=== PATIENT | female | born 1955 | race Hispanic/Latino ===

== ENCOUNTER 2020-03-09 07:09 | Emergency (ER) | payer OTHER ==
[~2020-03-09] VITALS: Ht 160 cm; Wt 72.6 kg
--- NOTE | 2020-03-09 07:32 | NUR ---
pt declined ice pack and pain meds.
--- OUTSIDE RECORDS SUMMARY | 2020-03-09 07:40 | XMS REPORT | Clinical Summary ---
Author Author LETITIA [facility] Address Unknown Phone Unavailable Care Team Providers Care Measurement Supervisor Name Role Phone Sharpless PCP Pcp, No PCP Unavailable Pcp, No PCP Unavailable Allergies Comments Active Allergy Reactions Severity Noted Date Adhesive Tape Rash Low 08/03/2010 IV Contrast Large welps over body with breathing difficulty Iodine Anaphylaxis, High 08/03/2010 Hives, Swelling Medications End Date Status Medication Sig Dispensed Refills Start Date Active pantoprazole (PROTONIX) Take 1 tablet 90 tablet 3 40 MG tablet (40 mg total) 7 by mouth daily. Additional Information Patient taking differently: 40 mg Oral As needed, Reported on 05/24/2019 9:58 AM Active LORazepam (ATIVAN) 2 MG Take 0.5 mg 0 tablet by mouth every 6 (six) hours as needed for Anxiety. Active dexAMETHasone (DECADRON) 06/06-06/07: 2 16 tablet 0 0 4 MG tablet tabs q12h 0 06/08-06/09: 1 tab q8h 06/10-06/11: 1 tab q12h. Active dexAMETHasone (DECADRON) 06/12-06/13: 1 6 tablet 0 2 MG tablet tab q12h 0 06/14-06/15: 1tab daily. 06/13/2019 acetaminophen-codeine Take 1 tablet 28 tablet 0 (TYLENOL #3) 300-30 mg by mouth 0 per tablet every 6 (six) hours as needed for up to 7 days. Max Daily Amount: 4 tablets 06/16/2019 docusate sodium (COLACE) Take 1 20 capsule 0 0 100 MG capsule capsule (100 0 mg total) by mouth 2 (two) times daily as needed for up to 10 days. Active Problems Problem Noted Date Cerebral edema 06/05/2019 Status post brain surgery in prior 48 hours 06/05/19 20 Post-operative pain 06/05/2019 Meningioma 06/04/2019 Chest pain 03/24/2017 Encounters Care Team Description Date Type Specialty Satya Bueno MD Brain tumor (HCC) (Primary Dx) 03/05/2020 Orders Only Radiation Oncology Satya Bueno MD Meningioma (HCC) 02/21/2020 Hospital Radiology Encounter Satya Bueno MD Meningioma (HCC) (Primary Dx) 02/11/2020 Orders Only Radiation Oncology Satya Bueno MD 02/11/2020 Orders Only Radiation Oncology Rich Foster MD Meningioma (HCC) 12/09/2019 Hospital Radiology Encounter Rich Foster MD Meningioma (HCC) (Primary Dx) 10/24/2019 Outside Orders Radiology Rich Foster MD CRANIOTOMY/ CRANIECTOMY,EXCISION TUMOR 06/04/2019 Surgery Delisa Simpson MD Glass, William Joseph, CRNA 06/04/2019 Anesthesia Event Rich Foster MD Meningioma (HCC) (Primary Dx); Cerebellar ataxia (HCC); Impaired mobility and ADLs; Diplopia 06/04/2019 Hospital General Internal Me dicine - Encounter 06/06/2019 06/04/2019 Travel Rich Foster MD 06/03/2019 Hospital Cardiology Encounter Meningioma (HCC) 06/03/2019 Hospital Pre-Admission Testi ng Encounter 06/03/2019 Orders Only General Internal Me dicine Rich Foster MD Meningioma (HCC) (Primary Dx) 05/31/2019 Orders Only Neurosurgery Rich Foster MD Meningioma (HCC) (Primary Dx) 05/31/2019 Orders Only Neurosurgery Rich Foster MD Meningioma (HCC) 05/27/2019 Hospital Radiology Encounter Rich Foster MD Meningioma (HCC) 05/24/2019 Hospital Pre-Admission Testi ng Encounter Rich Foster MD Meningioma (HCC) (Primary Dx) 05/22/2019 Outside Orders Radiology Rich Foster MD Meningioma (HCC) (Primary Dx) 05/22/2019 Orders Only Neurosurgery after 03/09/2019 Social History Date Tobacco Use Types Packs/Day Years Used Quit: 1989 Former Smoker Cigarettes Smokeless Tobacco: Never Used Drinks/Week oz/Week Comments Alcohol Use 3 Glasses of wine 3.0 Yes Sex Assigned at Date Recorded Not on file Last Filed Vital Signs Reading Time Taken Comments Vital Sign 134/62 06/06/2019 4:08 PM [facility] Blood Pressure 89 06/06/2019 4:08 PM [facility] Pulse 36.5 C (97.7 F) 06/06/2019 4:08 PM [facility] Temperature 22 06/06/2019 4:08 PM [facility] Respiratory Rate 98% 06/06/2019 4:08 PM [facility] Oxygen Saturation - - Inhaled Oxygen Concentration 64.3 kg (141 lb 12.1 oz) 06/04/2019 7:00 AM [facility] Weight 157.5 cm (5' 2.01") 06/04/2019 7:00 AM [facility] Height 25.92 06/04/2019 7:00 AM [facility] Body Mass Index Plan of Treatment Care Team Description Date Type Specialty Satya Bueno MD [address] [place], [place] [id number] 03/31/2020 Procedure visit Radiation Oncology Satya Bueno MD [address] [place] [address] 07/08/2020 Appointment Radiology Health Maintenance Due Date Last Done Comments BREAST CANCER SCREENING 1955 COLON CANCER SCREENING 1955 COLONOSCOPY CERVICAL CANCER SCREENING 12/23/1976 PAP ONLY (Age 21-65) INFLUENZA VACCINE (#1) 2019 02/22/2018, 02/27/2017 LIPID PANEL 03/24/2022 03/24/2017 Implants Device Identifier Shelf Expiration Date Model / Serial / L ot Implanted Type Area Manufactur er 06/12/2020 [id number] / / [id number] Cement Inject 5cc Hydroset [id number] IMPLANTS Head [place]:ST - [id number] Implanted: Qty: 1 on 06/04/2019 by Rich Miller MD at [facility] [id number] / / Plt Str Un3 2h [id number] - [id number] IMPLANTS Head [place]:CR Implanted: Qty: 1 on 06/04/2019 [id number] / / Cvr Bur Hole Lp 14mm W/Tab [id number] IMPLANTS Head [place]:CR - [id number] ANIOMAXILL Implanted: Qty: 2 on 06/04/2019 by Rich Choudhary MD at [facility] [id number] / / Scr Un3 Helix Self Drl 1.5x4mm IMPLANTS Head [place]:CR [id number] - [id number] ANIOMAXILL Implanted: Qty: 10 on 06/04/2019 by Rich Choudhary MD at [facility] Procedures Comments Procedure Name Priority Date/Time Associated Diag nosis MR BRAIN WITH & WITHOUT Routine 02/21/2020 Mening ioma (HCC) IV CONTRAST 4:15 PM CDT MR BRAIN WITH & WITHOUT Routine 12/09/2019 Mening ioma (HCC) IV CONTRAST 8:55 AM CDT RHYTHM STRIP - SCAN 06/10/2019 3:00 PM [facility] INTRAOPERATIVE PATH 06/10/2019 REPORT - SCAN 3:00 PM [facility] POCT-GLUCOSE METER Routine 06/06/2019 5:03 PM [facility] POCT-GLUCOSE METER Routine 06/06/2019 12:22 PM [facility] XR ESOPH SWALLOW FUNCTION STAT 06/06/2019 W/CINE VIDEO 10:36 AM [facility] POCT-GLUCOSE METER Routine 06/06/2019 8:45 AM [facility] CBC (HEMOGRAM ONLY) Routine 06/06/2019 4:28 AM [facility] PHOSPHORUS Routine 06/06/2019 4:28 AM [facility] MAGNESIUM Routine 06/06/2019 4:28 AM [facility] BASIC METABOLIC PANEL (7) Routine 06/06/2019 4:28 AM [facility] POCT-GLUCOSE METER Routine 06/05/2019 9:46 PM [facility] POCT-GLUCOSE METER Routine 06/05/2019 6:08 PM [facility] TRANSFUSION SERVICE 06/05/2019 REPORT - SCAN 6:03 PM [facility] MR BRAIN WITH & WITHOUT Routine 06/05/2019 IV CONTRAST 4:41 PM [facility] POCT-GLUCOSE METER Routine 06/05/2019 11:49 AM [facility] CBC (HEMOGRAM ONLY) Routine 06/05/2019 5:45 AM [facility] PHOSPHORUS Routine 06/05/2019 5:45 AM [facility] MAGNESIUM Routine 06/05/2019 5:45 AM [facility] BASIC METABOLIC PANEL (7) Routine 06/05/2019 5:45 AM [facility] SHORT LATENCY SEP ALL Routine 06/04/2019 LIMBS 2:17 PM [facility] TISSUE EXAM AP Routine 06/04/2019 11:42 AM [facility] PROCEDURE W/ 06/04/2019 Meningioma (HCC) INTRAOPERATIVE 8:12 AM [facility] NEUROMONITORING Case Notes 6 HRS Special Needs (STEALTH NAVIGATION , MICROSCOPE , NEUROMONIT ORING: SSEP, MEP) ULTRASOUND 06/04/2019 Meningioma (HCC) GUIDANCE,INTRAOPERATIVE 8:12 AM [facility] Case Notes 6 HRS Special Needs (STEALTH NAVIGATION , MICROSCOPE , NEUROMONIT ORING: SSEP, MEP) PROCEDURE W/ OPERATING 06/04/2019 Meningioma (HC C) MICROSCOPE 8:12 AM [facility] Case Notes 6 HRS Special Needs (STEALTH NAVIGATION , MICROSCOPE , NEUROMONIT ORING: SSEP, MEP) CRANIOTOMY,STEALTH 06/04/2019 Meningioma (HCC) 8:12 AM [facility] Case Notes 6 HRS Special Needs (STEALTH NAVIGATION , MICROSCOPE , NEUROMONIT ORING: SSEP, MEP) CRANIOTOMY/ 06/04/2019 Meningioma (HCC) CRANIECTOMY,EXCISION 8:12 AM [facility] TUMOR Case Notes 6 HRS Special Needs (STEALTH NAVIGATION , MICROSCOPE , NEUROMONIT ORING: SSEP, MEP) ABORH, MANUAL STAT 06/04/2019 7:18 AM [facility] CBC W/PLT COUNT & AUTO Routine 06/03/2019 Meningi rayray (HCC) DIFFERENTIAL 8:32 AM [facility] URINALYSIS W/ MICROSCOPIC Routine 06/03/2019 Meni ngioma (HCC) 8:32 AM [facility] BASIC METABOLIC PANEL (7) Routine 06/03/2019 Meni ngioma (HCC) 8:32 AM [facility] CBC W/PLT COUNT & AUTO Routine 06/03/2019 Meningi rayray (HCC) DIFFERENTIAL 8:32 AM [facility] PT/APTT Routine 06/03/2019 Meningioma (HCC ) 8:32 AM [facility] ECG 12-LEAD Routine 06/03/2019 8:14 AM [facility] Procedure Note - Interface, External Ris In - 06/03/2019 5:55 PM [facility] Ventricula r Rate 72 BPM Atrial Rate 72 BPM P-R Interval 138 ms QRS Duration 86 ms Q-T Interval 412 ms QTC Calculatio n(Bazett) 451 ms P Helix 31 degrees R Helix -29 degrees T Helix 22 degrees Normal sinus rhythm Normal ECG When compared with ECG of 7 21:09, No significan t change was found ECG 12-LEAD Routine 06/03/2019 Meningioma (HCC ) 8:14 AM [facility] MR BRAIN WITH & WITHOUT Routine 05/27/2019 Mening ioma (HCC) IV CONTRAST 10:08 AM [facility] POCT-CREATININE Routine 05/27/2019 9:09 AM [facility] TRANSFUSION SERVICE 05/25/2019 REPORT - SCAN 7:24 PM [facility] TYPE AND SCREEN, Routine 05/24/2019 Meningioma (H CC) AUTOMATED 10:31 AM [facility] after 03/09/2019 Results * MR brain without & with IV contrast (02/21/2020 4:15 PM CDT) Only the most recent of 4 results within the time period is included. Specimen Narrative Performed At FINAL REPORT [facility] MR, BRAIN, WITH \\T\\ WITHOUT CONTRAST INDICATION: Brain tumor, primary Radiation planning brain MRI TECHNIQUE: Multiplanar, multisequence M R imaging of the brain prior to and following intravenous administra tion of contrast. COMPARISON: MRI 12/09/2019, 06/05/2019, an d 05/27/2019 FINDINGS: Intracranial: Again noted are postopera tive changes of right retrosigmoid craniotomy for debulking o f right petroclival meningioma. The residual enhancing mass along the right petrous ridge has again slightly increased in size, c urrently 1.6 cm AP by 1.4 cm TV by 2.4 cm CC, compared to 1.6 cm AP by 1.1 cm TV by 2.4 cm CC on the prior exam when measured in similar fashion. Unchanged thin tail extending along the right tentorial fallon flet and into the internal auditory canal. Mass effect upon the mi dbrain, kaitlyn, and brachium pontis, and associated FLAIR hyperinten sity are unchanged. No acute intracranial hemorrhage. Simil ar restricted effusion due to tumor hypercellularity. No restricted d iffusion elsewhere to suggest acute infarct. No hydrocephalus. Visual ized intracranial flow voids are of normal course and caliber. Sinuses: No evidence of sinusitis. Mast oids are clear. Orbits: Globes are intact. Calvarium \\T\\ scalp: Right retrosigmoid craniotomy is unchanged. IMPRESSION: Since 12/09/2019, there has been again s light further increase in size of residual right petroclival meningiom a. Signed: Jailyn Syed MD Report Verified Date/Time: 02/22/2020 01:33:41 Procedure Note Interface, External Ris In - 02/22/2020 1:35 AM CDT FINAL REPORT MR, BRAIN, WITH \\T\\ WITHOUT CONTRAST INDICATION: Brain tumor, primary Radiation planning brain MRI TECHNIQUE: Multiplanar, multisequence MR imaging of the brain prior to and following intravenous administration of contrast. COMPARISON: MRI 12/09/2019, 06/05/2019, and 05/27/2019 FINDINGS: Intracranial: Again noted are postoperative changes of right retrosigmoid craniotomy for debulking of right petroclival meningioma. The residual enhancing mass along the right petrous ridge has again slightly increased in size, currently 1.6 cm AP by 1.4 cm TV by 2.4 cm CC, compared to 1.6 cm AP by 1.1 cm TV by 2.4 cm CC on the prior exam when measured in similar fashion. Unchanged thin tail extending along the right tentorial leaflet and into the internal auditory canal. Mass effect upon the midbrain, kaitlyn, and brachium pontis, and associated FLAIR hyperintensity are unchanged. No acute intracranial hemorrhage. Similar restricted effusion due to tumor hypercellularity. No restricted diffusion elsewhere to suggest acute infarct. No hydrocephalus. Visualized intracranial flow voids are of normal course and caliber. Sinuses: No evidence of sinusitis. Mastoids are clear. Orbits: Globes are intact. Calvarium \\T\\ scalp: Right retrosigmoid craniotomy is unchanged. IMPRESSION: Since 12/09/2019, there has been again slight further increase in size of residual right petroclival meningioma. Signed: Jailyn Syed MD Report Verified Date/Time: 02/22/2020 01:33:41 Performing Organization Address City/State/Zipcode Ph one Number [facility] * RHYTHM STRIP - SCAN (06/10/2019 3:00 PM [facility]) Narrative Performed At This result has an attachment that is n ot available. * INTRAOPERATIVE PATH REPORT - SCAN (06/10/2019 3:00 PM [facility]) Narrative Performed At This result has an attachment that is n ot available. * POC-Glucose meter (06/06/2019 5:03 PM [facility]) Only the most recent of 6 results within the time period is included. POC-Glucose 208 (H)Comment: : TESTED AT 70 - 110 mg/dL [facility] [id number] [facility] [id number]: Apartment Maintenance/Chainstitch Sewing Machine Operator ID MEDICAL CENTER = [id number] for JUMA EMMANUEL Specimen Blood Performing Organization Address City/[facility]/Zipcode Ph one Number [facility] [address] [place], [place] [address] [facility] * FL esoph swallow funct with cine video (06/06/2019 10:36 AM [facility]) Specimen Narrative Performed At FINAL REPORT GE [facility] Modified barium swallow exam with speec h pathology service CLINICAL HISTORY: swallow disfunction p er speech evaluation; discharge pending IMPRESSION: Please see the speech pathology service report for details. Barium contrast of multiple consistenci es is given to the patient to swallow. Fluoroscopic observation is pe rformed during swallowing. No aspiration or penetration. Fluoro time: 1.2 Number of images: 14 Signed: Julito Courtney MD Report Verified Date/Time: 06/06/2019 13:38:36 Reading [facility] [address] [facility] Procedure Note Interface, External Ris In - 06/06/2019 1:40 PM [facility] FINAL REPORT Modified barium swallow exam with speech pathology service CLINICAL HISTORY: swallow disfunction per speech evaluation; discharge pending IMPRESSION: Please see the speech pathology service report for details. Barium contrast of multiple consistencies is given to the patient to swallow. Fluoroscopic observation is performed during swallowing. No aspiration or penetration. Fluoro time: 1.2 Number of images: 14 Signed: Julito Courtney MD Report Verified Date/Time: 06/06/2019 13:38:36 Reading [facility]: [address] [facility] Performing Organization Address City/State/Zipcode Ph one Number GE RIS * CBC (Hemogram only) (06/06/2019 4:28 AM [facility]) Only the most recent of 2 results within the time period is included. WBC 17.4 (H) 3.5 - 10.5 K/L [facility] RBC 4.18 3.93 - 5.22 M/L [facility] Hemoglobin 12.5 11.2 - 15.7 GM/DL [facility] Hematocrit 37.4 34.1 - 44.9 % [facility] MCV 89.5 79.4 - 94.8 fL [facility] MCH 29.9 25.6 - 32.2 pg [facility] MCHC 33.4 32.2 - 35.5 GM/DL [facility] RDW 14.2 11.7 - 14.4 % [facility] Platelets 371 150 - 450 K/CU MM [facility] MPV 10.0 9.4 - 12.3 fL [facility] nRBC 0 0 - 0 /100 WBC [facility] Specimen Blood Performing Organization Address [facility] one Number [place] [address] [address] [phone] [place] [address] * Phosphorus (06/06/2019 4:28 AM [facility]) Only the most recent of 2 results within the time period is included. Phosphorus 3.0 2.3 - 4.7 mg/dL [facility] Specimen Blood Narrative Performed At Apartment Maintenance ID - [facility] Performing Organization Address [facility] one Number [place] [address] 0 [phone] [place] [address] * Magnesium (06/06/2019 4:28 AM [facility]) Only the most recent of 2 results within the time period is included. Magnesium 2.2 1.6 - 2.6 mg/dL [facility] Specimen Blood Narrative Performed At Apartment Maintenance ID [facility] Performing Organization Address [facility] Ph one Number [address] [facility] * Basic Metabolic Panel (06/06/2019 4:28 AM [facility]) Only the most recent of 3 results within the time period is included. Sodium 142 136 - 145 meq/L [facility] Potassium 4.0 3.5 - 5.1 meq/L [facility] Chloride 109 (H) 98 - 107 meq/L [facility] CO2 25 22 - 29 meq/L [facility] BUN 14 7 - 21 mg/dL [facility] Creatinine 0.70 0.57 - 1.25 mg/dL [facility] Glucose 131 (H) 70 - 105 mg/dL [facility] Calcium 9.2 8.4 - 10.2 mg/dL [facility] EGFR 85Comment: ESTIMATED GFR IS mL/min/1.73 sq m [facility] NOT ACCURATE CREATININE [facility] CLEARANCE IN PREDICTING [facility] GLOMERULAR FILTRATION RATE. ESTIMATED GFR IS NOT APPLICABLE FOR DIALYSIS PATIENTS. Specimen Blood Narrative Performed At Apartment Maintenance ID - LEANN W [facility] Performing Organization Address City/State/Zipcode Ph one Number [place] [address] [facility] * TRANSFUSION SERVICE REPORT - SCAN (06/05/2019 6:03 PM [facility]) Only the most recent of 2 results within the time period is included. Narrative Performed At This result has an attachment that is n ot available. * SHORT LATENCY SEP ALL LIMBS (06/04/2019 2:17 PM [facility]) Specimen Narrative Performed At INTRAOPERATIVE MONITORING REPORT [facility] Patient Name: Gloria Velasquez [facility] [place] Surgery Date: 06/04/2019 [place] Pro S/N: [id number] Monitoring began at 09:22 and ended at 14:17 Surgeon: Rich Foster MD Examining Neurologist: Laura Buckley MD (9:22-13:00) and Alicia Andrew MD (13:00-14:17) Monitoring Technologist: RACHEL Galaviz Procedure: Right Retrosigmoid Craniotom y Stimulation Parameters: Median nerves individually stimulated at the wrist Rate 4.7Hz, Intensity 30 mA, Durat ion 0.3ms Posterior Tibial nerves individual ly stimulated at the ankle Rate 4.7Hz, Intensity 50 mA, Durat ion 0.3ms Filters 30-500Hz, Notch Off Motor strip stimulated anterior to C3 a nd C4 with alternating polarities Intensity 100-500V, Train Number 9 , THEE 2-3ms Filters 30-2KHz, Notch Off Auditory (CN XIII) nerves individu ally stimulated at the ears Right ear ipsilateral, left ear co ntralateral, Rate 21.1Hz, Intensity 100dB nHL Masking 60dB n HL, Polarity Alternating, Filters 150-1.5KHz, Notch Off Recording Parameters: CV, CP3, CP4, C Pz, and FPz, Transcranial electrical Motor Evoked Po tentials recorded from Abductor Pollicis Brevis referenced to the Abductor Digiti Quinti Minimi muscle groups, Tibialis Anterior and the Adductor Hallucis muscle groups. Free-running EMG of the Right CN V and VII. Recording Parameters: A1 and A2 refer enced to CPz Description: Intraoperative neurophys iological monitoring was performed using a combination of upper and lower extremity somatosensory evoked potentials (SSEP) and transcranial electrical motor evoked potentials (TceMEP), free- running CN EMG on the right side, and Bilateral ABRs. A connectio n with an examining neurologist was established and maintained througho ut the operative procedure by the monitoring technologist. Upper and lower extremity somatosensory evoked potentials were recorded at the subcortical and cortica l levels following median nerve stimulation at the wrist and post erior tibial nerve stimulation at the ankle. All SSEPs were present and reproducible at baselines, and consistent with baselines throughou t the case and at closing. At closing, somatosensory evoked potential s were judged to be essentially unchanged from those of pos t-positioning baselines. TceMEPs were recorded peripherally from the upper and lower extremities following alternating polar ity motor strip stimulation. Upper and lower TcMEPs were clear and r eproducible from the beginning of the surgical procedure. At closing , TceMEP responses were judged to stay unchanged from post anesthetic protocol post craniectomy. Free running responses were recorded fr om the right CN VII via Orbicularis oculi and Orbicularis jose muscles throughout the procedure. Intermittent firing of the l eft facial nerve as reflected in the Orbicularis jose was observed. All cranial nerve EMG recordings were quiet upon closing. Brain Stem Auditory Evoked Potentials w ere recorded following individual stimulation of each ear. The resulting baseline responses to auditory nerve stimulation showed go od morphology and inter peak latency and good amplitudes in waves 1, 3 and 5 on the left side. Waves 1, 3 and 5 were present on the ri ght side also but not as well-formed. ABR responses at closing w ere essentially unchanged relative to baseline recordings bilater ally. Conclusion: The SEP study suggests the absence of u ntoward, secondary effects on the somatosensory pathway as a conseque nce of this surgical procedure. The MEP study suggests the absence of u ntoward, secondary effects on the motor pathways innervating these mo nitored muscles. The EMG results suggest that there were periods of probable neurotonic activity involving the facia l muscles, suggesting transient irritation of the right CN7 i ntraoperatively. The ABR results suggest the absence of untoward, secondary effects on the bilateral brainstem auditory pathwa ys. Laura Buckley M.D. and [employer] Procedure Note Interface, External Ris In - 08/20/2019 10:43 AM CDT INTRAOPERATIVE MONITORING REPORT Patient Name: Gloria Velasquez [facility], [facility] Surgery Date: 06/04/2019 [employer] Pro S/N: [id number] Monitoring began at 09:22 and ended at 14:17 Surgeon: Rich Foster MD Examining Neurologist: Laura Buckley MD (9:22-13:00) and Alicia Andrew MD (13:00-14:17) Monitoring Technologist: RACHEL Galaviz Procedure: Right Retrosigmoid Craniotomy Stimulation Parameters: Median nerves individually stimulated at the wrist Rate 4.7Hz, Intensity 30 mA, Duration 0.3ms Posterior Tibial nerves individually stimulated at the ankle Rate 4.7Hz, Intensity 50 mA, Duration 0.3ms Filters 30-500Hz, Notch Off Motor strip stimulated anterior to C3 and C4 with alternating polarities Intensity 100-500V, Train Number 9, THEE 2-3ms Filters 30-2KHz, Notch Off Auditory (CN XIII) nerves individually stimulated at the ears Right ear ipsilateral, left ear contralateral, Rate 21.1Hz, Intensity 100dB nHL Masking 60dB nHL, Polarity Alternating, Filters 150-1.5KHz, Notch Off Recording Parameters: CV, CP3, CP4, CPz, and FPz, Transcranial electrical Motor Evoked Potentials recorded from Abductor Pollicis Brevis referenced to the Abductor Digiti Quinti Minimi muscle groups, Tibialis Anterior and the Adductor Hallucis muscle groups. Free-running EMG of the Right CN V and VII. Recording Parameters: A1 and A2 referenced to CPz Description: Intraoperative neurophysiological monitoring was performed using a combination of upper and lower extremity somatosensory evoked potentials (SSEP) and transcranial electrical motor evoked potentials (TceMEP), free-running CN EMG on the right side, and Bilateral ABRs. A connection with an examining neurologist was established and maintained throughout the operative procedure by the monitoring technologist. Upper and lower extremity somatosensory evoked potentials were recorded at the subcortical and cortical levels following median nerve stimulation at the wrist and posterior tibial nerve stimulation at the ankle. All SSEPs were present and reproducible at baselines, and consistent with baselines throughout the case and at closing. At closing, somatosensory evoked potentials were judged to be essentially unchanged from those of post-positioning baselines. TceMEPs were recorded peripherally from the upper and lower extremities following alternating polarity motor strip stimulation. Upper and lower TcMEPs were clear and reproducible from the beginning of the surgical procedure. At closing, TceMEP responses were judged to stay unchanged from post anesthetic protocol post craniectomy. Free running responses were recorded from the right CN VII via Orbicularis oculi and Orbicularis jose muscles throughout the procedure. Intermittent firing of the left facial nerve as reflected in the Orbicularis jose was observed. All cranial nerve EMG recordings were quiet upon closing. Brain Stem Auditory Evoked Potentials were recorded following individual stimulation of each ear. The resulting baseline responses to auditory nerve stimulation showed good morphology and inter peak latency and good amplitudes in waves 1, 3 and 5 on the left side. Waves 1, 3 and 5 were present on the right side also but not as well-formed. ABR responses at closing were essentially unchanged relative to baseline recordings bilaterally. Conclusion: The SEP study suggests the absence of untoward, secondary effects on the somatosensory pathway as a consequence of this surgical procedure. The MEP study suggests the absence of untoward, secondary effects on the motor pathways innervating these monitored muscles. The EMG results suggest that there were periods of probable neurotonic activity involving the facial muscles, suggesting transient irritation of the right CN7 intraoperatively. The ABR results suggest the absence of untoward, secondary effects on the bilateral brainstem auditory pathways. Laura Buckley M.D. and Alicia Andrew M.D. Performing Organization Address City/State/Zipcode Ph one Number GE RIS * Tissue Exam (06/04/2019 11:42 AM [facility]) Case Report Surgical Pathology Report [facility] Case: [id number] [facility] Authorizing Provider: Rich Foster MD Collected: 06/04/2019 1142 Ordering Location: [facility] PERIOPERATIVE Received: 06/04/2019 1149 SERVICES Pathologist: Pramod Vicente MD Specimens: A) - Mass, CP ANGLE MASS B) - Mass, CP ANGLE MASS DIAGNOSIS A. 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 Immunoperoxidase [facility] stains for Ki67 confirm a labelling index of 8.9% focally, but overall less than 3%. CPT Code(s) 53227 x 2; 82548; 05468 [facility] CLINICAL Cerebellopontine angle mass [facility] SPECIMEN SOURCE CP angle mass [facility] GROSS A. Received fresh labeled "CP [facility] DESCRIPTION angle mass" is fragmented [facility] castro-pink soft tissue measuring [facility] in aggregate 0.5 x 0.3 x 0.2 cm. Touch preparations and frozen sections are performed. The specimen is entirely submitted in cassette FSA1. CYB/pl B. Received in formalin labeled "CP angle mass" are multiple pieces of castro-brown irregular soft tissue measuring in aggregate 1.2 x 0.5 x 0.5 cm. The specimen is submitted entirely in cassette B1. CYB/ew INTRAOPERATIVE CP ANGLE MASS, BIOPSY: [facility] CONSULTATION - MENINGIOMA [facility] The results are verbally MEDICAL CENTER reported by Dr. Vicente to OR-11 at 12:02 p.m. MICROSCOPIC Performed on A and B [facility] DESCRIPTION [facility] SPECIAL STUDIES The interpretation of this [facility] ST ANTHONY Muir'S case included the use of [facility] immunohistochemistry or [facility] special stains. Control Slides Examined: In-house known positive controls were evaluated along with the test tissue. These control slides run alongside of the patients sample show appropriate staining. Internal positive and negative controls when available are evaluated Immunohistochemistry technical testing was performed at [facility], Pathology Laboratory where it was developed and its performance characteristics were determined. It has not been cleared or approved by the U.S. Food and Drug Administration. The FDA has determined that such clearance or approval is not necessary. The test is used for clinical purposes. It should not be regarded as investigational or for research. This laboratory is certified under the Clinical Laboratory Improvement Amendments of 1988 (CLIA-88) as qualified to perform high complexity clinical laboratory testing. Specimen Tissue - Mass (morphologic abnormality) Tissue specimen (specimen) - Mass (morphologic abnormality) Performing Organization Address [facility] Ph one [address] [address] [facility] * ABORH, manual (06/04/2019 7:18 AM [facility]) ABO Grouping O [facility] Rh Factor POS [facility] Specimen Blood Performing Organization Address [facility] Ph one [address] [address] [facility] * PT/aPTT (06/03/2019 8:32 AM [facility]) Protime 12.5 11.9 - 14.2 seconds [facility] INR 1.0 <=5.9 [facility] PTT 32.6 22.5 - 36.0 seconds [facility] Specimen Blood - Entire left upper arm (body structure) Narrative Performed At Effective 09/26/2018: PT Reference Range Change [facility] New: 11.9-14.2 Previous: 11.7-14.7 [facility] MEDICAL PAULETTE TER RECOMMENDED COUMADIN/WARFARIN INR THERA PY RANGES STANDARD DOSE: 2.0-3.0 Includes: PROP HYLAXIS for venous thrombosis, systemic embolization; TREATMENT for venous thro mbosis and/or pulmonary embolus. HIGH RISK: Target INR is 2.5-3.5 for pa tients wiht mechanical heart valves. Performing Organization Address City/State/Zipcode Ph one Number [address] [address] MEDICAL CENTER * CBC with platelet count + automated diff (06/03/2019 8:32 AM [facility]) WBC 5.4 3.5 - 10.5 K/L [facility] RBC 4.90 3.93 - 5.22 M/L [facility] Hemoglobin 14.6 11.2 - 15.7 GM/DL [facility] Hematocrit 44.1 34.1 - 44.9 % [facility] MCV 90.0 79.4 - 94.8 fL [facility] MCH 29.8 25.6 - 32.2 pg [facility] MCHC 33.1 32.2 - 35.5 GM/DL [facility] RDW 13.7 11.7 - 14.4 % [facility] Platelets 387 150 - 450 K/CU MM [facility] MPV 9.5 9.4 - 12.3 fL [facility] nRBC 0 0 - 0 /100 WBC [facility] % Neutros 51 % [facility] % Lymphs 38 % [facility] % Monos 9 % [facility] % Eos 2 % [facility] % Baso 1 % [facility] # Neutros 2.74 1.56 - 6.13 K/L [facility] # Lymphs 2.03 1.18 - 3.74 K/L [facility] # Monos 0.49 (H) 0.24 - 0.36 K/L [facility] # Eos 0.08 0.04 - 0.36 K/L [facility] # Baso 0.06 0.01 - 0.08 K/L [facility] Immature 0 0 - 1 % [facility] Granulocytes-Re [facility] Specimen Blood - Entire left upper arm (body structure) Performing Organization Address City/State/Zipcode Ph one Number [place] [address] MEDICAL CENTER * Urinalysis w/Microscopic (06/03/2019 8:32 AM [facility]) Color, UA Colorless [facility] Clarity, UA Clear [facility] Specific 1.003 1.001 - 1.035 [facility] pH, UA 7.5 5.0 - 8.0 [facility] Protein, UA Negative Negative [facility] Glucose, UA Negative Negative [facility] Ketones, UA Negative Negative [facility] Bilirubin, UA Negative Negative [facility] Blood, UA Negative Negative [facility] Nitrite, UA Negative Negative [facility] Leukocytes, UA Negative Negative [facility] Urobilinogen, 0.2 0.2 - 1.0 mg/dL [facility] RBC, UA 0 /HPF [facility] WBC, UA 0 /HPF [facility] Squam Epithel, <1 /HPF [facility] Specimen Source Urine, Clean Catch [facility] Specimen Urine - Urine specimen collection, clean catch (procedure) Narrative Performed At Apartment Maintenance ID - [auto] [facility] Apartment Maintenance ID - tech [facility] Performing Organization Address City/[facility] Ph one Number [facility] [address] [place], [place] [address] MEDICAL CENTER * ECG 12 lead (06/03/2019 8:14 AM [facility]) Specimen Narrative Performed At Ventricular Rate 72 BPM GE MUSE Atrial Rate 72 BPM P-R Interval 138 ms QRS Duration 86 ms Q-T Interval 412 ms QTC Calculation(Bazett) 451 ms P Helix 31 degrees R Helix -29 degrees T Helix 22 degrees Normal sinus rhythm Normal ECG When compared with ECG of 24-MAR-2017 2 1:09, No significant change was found Confirmed by Dale BEST MICHAEL ([id number]) on 06/04/2019 8:03:27 AM Procedure Note Interface, External Ris In - 06/04/2019 8:03 AM [facility] Ventricular Rate 72 BPM Atrial Rate 72 BPM P-R Interval 138 ms QRS Duration 86 ms Q-T Interval 412 ms QTC Calculation(Bazett) 451 ms P Helix 31 degrees R Helix -29 degrees T Helix 22 degrees Normal sinus rhythm Normal ECG When compared with ECG of 24-MAR-2017 21:09, No significant change was found Confirmed by Dale BEST MICHAEL ([id number]) on 06/04/2019 8:03:27 AM Performing Organization Address City/State/[facility] Cent[facility] Ph one Number GE MUSE * POC-Creatinine (05/27/2019 9:09 AM [facility]) POC-Creatinine 0.7Comment: TESTED AT [facility]-KG 0.6 - 1.3 mg/dL [facility] [address] [facility] [address] MEDICAL CENTER POC-EGFR 85 mL/min/1.73M2 [facility] [place] Specimen Blood Performing Organization Address [facility] Cent[facility] Ph one Number [facility] [address] [place], [place] [address] [facility] * Type and screen, automated (05/24/2019 10:31 AM [facility]) ABO/RH O POSITIVE [facility] ([facility]) [facility] Ab Scrn NEGATIVE [facility] Specimen Blood - Entire right upper arm (body structure) Performing Organization Address [facility] Centercode Ph one Number [facility] [address] [place] [address] [facility] after 03/09/2019 Insurance Type Payer Benefit Subscriber ID Effective Phone Address Plan / Dates Group HMO/POS [facility] [employer] [facility] [id number] 2019-P [facility] resent CHOICE EXCHANGE (Home) [place] [address] Advance Directives For more information, please contact: [phone] Date Inactivated Comments Code Status Date Activated 06/06/2019 8:19 PM Full Code 06/04/2019 4:33 PM This code status was determined by: Patient 06/04/2019 4:33 PM Full Code 06/04/2019 6:59 AM This code status was determined by: Patient 03/26/2017 12:36 PM Full Code 03/24/2017 8:32 PM This code status was determined by: Patient
--- OUTSIDE RECORDS SUMMARY | 2020-03-09 07:40 | XMS REPORT | Continuity of Care Document ---
Author Author [facility] t Organization [facility] Address [address] [place] [address] [address] [place] [address] Phone Unavailable Care Team Providers Care Financial Management Name Role Phone Sharpless PCP Myles VILLATORO, Sai Hernadez Attphys [phone] Alphonse VILLATORO, Fredi Attphys 3, Ods Attphys Unavailable Field-Hrt, Visual Attphys Unavailable Cristian VILLATORO, Yasmine Villanueva Attphys Pravin Foster MD Attphys Yasmine FOSTER Attphys Unavailable Tatiana VILLATORO, Jules Hercules Attphys [phone] Lonnie Gomez CRNA Attphys [phone] CONNOR, UMAR Attphys Unavailable Yasmine FOSTER Admphys Unavailable CONNOR, UMAR Admphys Unavailable Payers Payer Name Policy Type Policy Number Effective Date Expiration Date S [facility] OICE [id number]/POS xxxx [id number] 2019 00:00:00 [facility] Cente r Problems Condition Name Condition Details Condition Category Status Onset Date Resolution Date Last Treatment Date Treating Clinician Comments Source Cerebral edema Cerebral edema Disease Active 2019-06-05 00:00:00 [facility] Status post brain surgery in prior 48 hours Status pos t brain surgery in prior 48 hours Disease Active 2019-06-05 00:00:00 [facility] Post-operative pain Post-operative pain Disease Active 2019-06-05 00:00 :00 [facility] Meningioma Meningioma Disease Active 2019-06-04 00:00:00 [facility] Chest pain Chest pain Disease Active 2017-03-24 00:00:00 [facility] Allergies, Adverse Reactions, Alerts Allergy Name Allergy Type Status Severity Reaction(s) Onset Date Inacti ve Date Treating Clinician Comments Source Adhesive Tape Propensity to adverse reactions Active Rash 2010-08-03 00:00:00 [facility] Iodine Propensity to adverse reactions Active Anap hylaxis, Hives, Swelling 2010-08-03 00:00:00 IV ContrastLarge wel ps over body with breathing difficulty [facility] Social History Social Habit Start Date Stop Date Quantity Comments Source History of tobacco use Current smoker [facility] Sex Assigned At [facility] Tobacco use and exposure 2019-06-06 00:00:00 2019-06-06 00:00:00 Neve r used [facility] Alcohol intake 2019-06-06 00:00:00 2019-06-06 00:00:00 Current drinker of alcohol (finding) [facility] Sabina r Smoking Status Start Date Stop Date Source Former smoker 2019-06-06 00:00:00 2019-06-06 00:00:00 [facility] Medications Ordered Medication Name Filled Medication Name Start Date Stop Da te Current Medication? Ordering Clinician Indication Dosage Frequency Signature (SIG) Comments Components Source LORazepam (ATIVAN) 2 MG tablet 2019-06-06 18:19:39 Yes .5mg Take 0.5 mg by mouth every 6 (six) hours as needed for Anxiety. [facility] dexAMETHasone (DECADRON) 4 MG tablet 2019-06-06 00:00:00 Ye s 2/6- 2/7: 2 tabs q12h2/8-2/9: 1 tab q8h2/10-2/11: 1 tab q12h. [facility] dexAMETHasone (DECADRON) 2 MG tablet 2019-06-06 00:00:00 Ye s /12- 13: 1 tab q12h2/14-15: 1tab daily. [facility] docusate sodium (COLACE) 100 MG capsule 00:00:00 2019-06-16 23:59:00 No 100mg Take 1 capsule (100 mg total) by mouth 2 (two) times daily as needed for up to 10 days. [facility] acetaminophen-codeine (TYLENOL #3) 300-30 mg per tablet 2019-06-06 00:00:00 2019-06-13 23:59:00 No 1{tbl} Take 1 tablet by mouth every 6 (six) hours as needed for up to 7 days. Max Daily Amount: 4 tablets [facility] pantoprazole (PROTONIX) 40 MG tablet 2017-03-27 00:00:00 Ye s 40mg QD Take 1 tablet (40 mg total) by mouth daily. [facility] Vital Signs Vital Name Observation Time Observation Value Comments Source Systolic blood pressure 2019-06-06 16:08:00 134 mm[Hg] [facility] Diastolic blood pressure 2019-06-06 16:08:00 62 mm[Hg] [facility] Heart rate 2019-06-06 16:08:00 89 /min [facility] Body temperature 2019-06-06 16:08:00 36.5 Astrid [facility] Respiratory rate 2019-06-06 16:08:00 22 /min [facility] Oxygen saturation in Arterial blood by Pulse oximetry 06-06 16:08:00 98 /min [facility] Body height 2019-06-04 07:00:00 157.5 cm [facility] Body weight 2019-06-04 07:00:00 64.3 kg [facility] BMI 2019-06-04 07:00:00 25.92 kg/m2 [facility] Procedures Procedure Date / Time Performed Performing Clinician [facility] e MR BRAIN WITH & WITHOUT IV CONTRAST 2020-02-21 16:15:00 Satya Robertson [facility] MR BRAIN WITH & WITHOUT IV CONTRAST 2019-12-09 08:55:00 Ken Foster [facility] RHYTHM STRIP - SCAN 2019-06-10 15:00:07 Provider, Default Scanni saul [facility] INTRAOPERATIVE PATH REPORT - SCAN 2019-06-10 15:00:05 Provid er, Default Scanning [facility] POCT-GLUCOSE METER 2019-06-06 17:03:00 Rich Foster [facility] POCT-GLUCOSE METER 2019-06-06 12:22:00 Rich Foster [facility] XR ESOPH SWALLOW FUNCTION W/CINE VIDEO 2019-06-06 10:36:00 Robin Durham [facility] POCT-GLUCOSE METER 2019-06-06 08:45:00 Rich Foster [facility] BASIC METABOLIC PANEL (7) 2019-06-06 04:28:00 Robin Durham [facility] MAGNESIUM 2019-06-06 04:28:00 Robin Durham [facility] PHOSPHORUS 2019-06-06 04:28:00 Robin Durham [facility] CBC (HEMOGRAM ONLY) 2019-06-06 04:28:00 Robin Durham [facility] POCT-GLUCOSE METER 2019-06-05 21:46:00 Rich Foster [facility] POCT-GLUCOSE METER 2019-06-05 18:08:00 Rich Foster [facility] TRANSFUSION SERVICE REPORT - SCAN 2019-06-05 18:03:26 Provid er, Default Scanning [facility] MR BRAIN WITH & WITHOUT IV CONTRAST 2019-06-05 16:41:00 Suzanne Durham [facility] POCT-GLUCOSE METER 2019-06-05 11:49:00 Rich Foster [facility] BASIC METABOLIC PANEL (7) 2019-06-05 05:45:00 Robin Durham [facility] MAGNESIUM 2019-06-05 05:45:00 Herminio Robin Angelo [facility] PHOSPHORUS 2019-06-05 05:45:00 Herminio Robin Angelo [facility] CBC (HEMOGRAM ONLY) 2019-06-05 05:45:00 Herminio Robin Angelo [facility] SHORT LATENCY SEP ALL LIMBS 2019-06-04 14:17:00 Rich Foster [facility] TISSUE EXAM 2019-06-04 11:42:46 Rich Foster [facility] CRANIOTOMY/ CRANIECTOMY,EXCISION TUMOR 2019-06-04 08:12:00 Rich Foster [facility] CRANIOTOMY,STEALTH 2019-06-04 08:12:00 Rich Foster [facility] PROCEDURE W/ OPERATING MICROSCOPE 2019-06-04 08:12:00 Frank Foster [facility] ULTRASOUND GUIDANCE,INTRAOPERATIVE 2019-06-04 08:12:00 Sean Foster [facility] PROCEDURE W/ INTRAOPERATIVE NEUROMONITORING 2019-06-04 08:12:00 Rich Foster [facility] ABORH, MANUAL 2019-06-04 07:18:00 Ivis Grande [facility] PT/APTT 2019-06-03 08:32:00 Rich Foster [facility] BASIC METABOLIC PANEL (7) 2019-06-03 08:32:00 Rich Foster [facility] URINALYSIS W/ MICROSCOPIC 2019-06-03 08:32:00 Rich Foster CH, I [facility] CBC W/PLT COUNT & AUTO DIFFERENTIAL 2019-06-03 08:32:00 Ken Foster [facility] ECG 12-LEAD 2019-06-03 08:14:15 Unknown, Hl7 Doctor [facility] MR BRAIN WITH & WITHOUT IV CONTRAST 2019-05-27 10:08:00 Ken Foster [facility] POCT-CREATININE 2019-05-27 09:09:00 Rich Foster [facility] TRANSFUSION SERVICE REPORT - SCAN 2019-05-25 19:24:59 Provid er, Default Scanning [facility] TYPE AND SCREEN, AUTOMATED 2019-05-24 10:31:00 Rich Foster [facility] Plan of Care Planned Activity Planned Date Details Comments Source Future Scheduled Test 2022-03-24 00:00:00 Lipid panel (proce dure) [code = 91415840] [facility] r Future Scheduled Test 2019-12-31 00:00:00 INFLUENZA VACCINE (#1) [code = INFLUENZA VACCINE (#1)] [facility] Future Scheduled Test 1976-12-23 00:00:00 Screening for dennis gnant neoplasm of cervix (procedure) [code = 901614686] [facility] Future Scheduled Test 1955 00:00:00 Screening for dennis gnant neoplasm of breast (procedure) [code = 576628762] [facility] Future Scheduled Test 1955 00:00:00 Screening for dennis gnant neoplasm of colon (procedure) [code = 357972774] [facility] Encounters Start Date/Time End Date/Time Encounter Type Admission Type Attendi [facility] Care Department Encounter ID Source 2020-01-09 08:39:54 2020-01-09 09:29:54 Office Visit F toniaan, Fredi 3, Ods Field-Hrt, Visual 3, Ods [facility] [id number] 2019-10-16 09:48:52 2019-10-16 10:20:38 Office Visit Rich Foster [facility] [id number] 2019-06-19 08:05:57 2019-06-19 08:20:57 Office Visit Rich Foster [facility] [id number] Results Test Description Test Time Test Comments Results Result Comments Source MR, BRAIN, WITH 2020-02-22 01:33:00 Unlisted Reason for Exam - Click Yes and Enter Reason Below->Yes Unlisted Reason for Exam->[facility] 1955 Sex: FFINAL REPORT MR, BRAIN, WITH \\T\\ WITHOUT CONTRAST INDICATION: Brain tumor, primaryRadiation planning brain MRI TECHNIQUE: Multiplanar, multisequence MR [...] \\T\\ scalp: Right retrosigmoid craniotomy is unchanged. IMPRESSION:Since 12/09/2019, there has been again slight further increase in size of residual right petrocli valerie meningioma. Signed: Jailyn Syedeport Verified Date/Time: 02/22/2020 01:33:41 brain without & with IV contrast 2020-02-22 01:33:00 Interface, External Ris In - 02/22/2020 1:35 AM CDTFINAL REPORT MR, BRAIN, WITH \\T\\ WITHOUT CONTRAST INDICATION: Brain tumor, primaryRadiation planning brain MRI TECHNIQUE: Multiplanar, multisequence MR [...] thin tail extending along the right tentorial leaf let and into the internal auditory canal. Mass [...] \\T\\ scalp: Right retrosigmoid craniotomy is unchanged. IMPRESSION:Since 12/09/2019, there has been again slight further increase in size of residual right petroclival meningioma. Signed: Jailyn Syed MDReport Verified Date/Time: 02/22/2020 01:33:41 [facility] MR, BRAIN, WITH 2019-12-09 14:59:00 FINAL REPORT MRI Brain with and without contrast Clinical History: MENINGIOMA Technique: MRI of the brain utilizing axial T1, T2, FLAIR, GRE, DWI, sagittal T1; and postgadolini um axial, sagittal, and coronal T1-weighted images. Comparisons: MRI 06/05/2019 and 05/27/2019 Findings: A right retrosigmoid craniotomy is again seen for debulking of the right petroclival meningioma. There has been interval increase in tumor size measuring approximately 1.1 cm TV x 2.2 cm AP x 2.7 cm CC, previously 1.0 cm x 2.0 cm x 2.6 cm. As before, the tumor extends over the right tentorial incisura with thickening along both sides of the tentorium. However, the bulk of the tumor is infratentorial along the right lateral clivus, with a thin tail of extension into the right internal auditory canal again noted. However, the extent of FLAIR hyperintense reactive edema in the right midbrain, kaitlyn, and brachium pontis appears decreased. There is no evidence of acute infarct or hemorrhage. There is no hydrocephalus or midline shift. There are no extra-axial fluid collections. The craniocervical junction is preserved. The major intracranial flow-voids appear patent. IMPRESSION: Since 06/05/2019, the po stsurgical right petroclival meningioma has slightly increased in size. Signed: Brandon Weber MDReport Verified Date/Time: 12/09/2019 14:59:49 Reading Location: [address] Neuro Reading Room T-LATENCY SPE, ALL LIMBS 2019-08-20 10:43:00 IOM INTRAOPERATIVE MONITORING REPORT Patient Name: Gloria Snyder [facility] Surgery Date: 06/04/2019 Serene Pro S/N: [id number] Monitoring began at 09:22 and ended at [...] median nerve stimulation at the wrist and divine healer ior tibial nerve stimulation at the ankle. All [...] secondary effects on the motor pathways innervating th marilyn monitored muscles. The EMG results suggest that there were periods of probable neurotonic activity involving the facial muscles, suggesting transient irritation of the right CN7 intraoperatively. The ABR results suggest the absence of untoward, secondary effects on the bilateral brainstem auditory pathways. Laura Buckley M.D. and Alicia Andrew M.D. T LATENCY SEP ALL LIMBS 2019-08-20 10:43:00 Interface, External Ris In - 08/20/2019 10:43 AM CDTINTRAOPERATIVE MONITORING REPORT Patient Name: Gloria Snyder [facility] Surgery Date: 06/04/2019 Upclique Pro S/N: [id number] Monitoring began at 09:22 and ended at 14:17 Surgeon: Rich Foster MD Examining Neurologist: Laura Buckley MD (9:22- 13:00) and Alicia Andrew MD (13:00-14:17) Monitoring Technologist: [...] combination of upper and lower extremity somatosensory gerardo ked potentials (SSEP) and transcranial electrical motor evoked [...] Laura Buckley M.D. and Alicia Andrew M.D. [facility] Tissue Exam 2019-06-10 16:09:00 Test Item Case Report (test code = 104) Surgical Pathology Repor t Case: [id number] Authorizing Provider: Rich Foster MD Collected: 06/04/2019 1142 Ordering Location: [facility] PERIOPERATIVE Received: 06/04/2019 1149 SERVICES Pathologist: Pramod Vicente MD Specimens: A) - Mass, CP ANGLE MASS B) - Mass, CP ANGLE MASS DIAGNOSIS (test code = 3220) [file] [id number]I3h K2GOQWNdPSpenTkahD0kJoOmHaJhIKqyXL4kXESrI5djiDTeDXJjGRLyZ2bwJlHqvK8zfYlsMDoulaGp CDItgr41EZB9EkGal7R3SEX3PIEcFKEcq0cpQLIjnNFwNdLoVeJyRfEnHdrzfMYpFOSpEgLxw3smc805 yQXzh9vaAYJsWrG9lCRsPMUlxOZxD464AGCaYVlpk8 xaf9ItDZFmnLWod3W2ADOQltcvrTd3sWerH21go8D9EckfQ4sqZTFoVDHuU6XiXI0rRHUpTfj2WDO2NT R0ABWxPJRiQ4XoFD9yMUKbuORcNYn2l6xdzYwmANRnWDQ6u4obOJpcfoFiGE1xxq1uzHj6c1jgveQrCI ZxPZIvqOXNYLMgQ9IwbYtiZn1leNh0dCfxOyraXHU9 Qgs2HL7tnt80put9nKypMCPqmbqsLfY8BOsmWCWlhezsUYa6UDrpOLYbfXM5IMHxhEAmP8WrGYNvXM3r jff5KTD5VLxaOAFxZkZ6WJNlwAXiGXDtvZrcVQozo710DSH9AzIwSO2zD3Wiy5G2rC0foAFkANRqyBZz EcXdKTDvqh8ynOEiDAuvj3FqDHA4gtB6fGLkdPYsWP ZmZmM9XAebLQ0vzn34QPTmGRL3nk4icMZrtKvqekJruGOsAUvbO9GxISYyg291WZVxC4AfNXNfg3S9eb PiLwEpGUUvdRC3snH4HGPcHY3wtvpbr9nqSJasHQlmRHGxkbJ3soX2AJAlsAIlB4IogP5pUIZhJR3unw aaj7tsCUR7POggZPUzFYH8NmTcOYKpa5Qvxcl2DlPp d9OuiOClPEhxH24uu533XUOkywVeR2wnpDFvpvsqvXDafaorSYcaqeI1DZDtQDqunmfcYQCiQKfvX8ej BvWgDQHvgIjkNLtac8OsCEGmLMWlQdXweRFlMSCoFre9VLKigDCmULTaQjZnD7upnixwRqRVKDIsh8gj U7bohAXWxQYrS3DxDZyukuPkXNsbVHipQTS4HNS3Vg84EcU5SCNnpv15 COMMENT (test code = 3359) v4pkfLIrZJOmyUUjYcWwJFKmEIMtb7ubDMRweVSeKvWtHoFbQhWpPphddHNgLOCcTcGyc9rwj945tDGz v5orKMQmBtG7zINkWRGcyGRgD137g3cgf2yeicYkhVR1RHTqMZP3KKoemmTeddD3MMpsyWScGtH6DIvp sbLsYSbpvnGhfkLrXnb9PYFwK637PFA8aZlbe9iuTE T4KLSdFTKmOaYvAe5tmWHiN390BTEqKJOVPRDqtLa2VEHyqaThiqCfxGSEq743K828h3qsZGBcdbSkrM nEpfxwe6rrM765MNKoxMJimyLjKtMvERBavGXfjGS1ICLfDR5plrmzLsAaKC2fgfsxQdAlUK3mwuu7Bw DrXA2lntxdNrOkLAhaTLVtivgtEQBsd9TktwlrSB5z J5Fie0N5cP5lpVEpHDGdvTMxLlLdFXVnos6bzPLzVNltc6DbBNS6lmV1sRLfrDTdPSFeMG92Pzfsf7Kh XuwoOOT6AYNyjpUds0Fay7lsEyHmnyLkG9qsF7UaQJMwTLUtGNHjKzRwhuCmh8Ofj1QvoWNxoMv2f1uv LMIxAZTbqGeeb9vwAQK6NJTgU5B6rPSrp9jqABxbGY WubBI4pdygGAczRZJzpqS9nheyUPtvEQMrzTO1btycAHqvDDOiEhW0efasXGqlUORwRHI8SZpno798FT H9GLdvLiejUZunQJDtupEuvpCfsQizYUTaVPVkOTijGZBvKIkpGOXvSXGqYrIynIifzGkwsI9xPbCcAh JzXDoqRF2zKWXzP0kgsGLvFNIyZCWzT5mpQcQvoT6m aVeoRUxnvgCvUNYqBFX5sB7wwgQdUYFjej6gAFW6hBvxUCxmJhSmvFDgGVOjYB3zGX8fYSS2O4Qtn6z2 SMPchVKrd3HqVuYAqS54ey7gJDQnaDgeMMGqLPQ2OEcmrgXsi6EfA2g4LfHlv74vdDSaAJEqiFLlCUww uM0cRMciCDY1VM1vXMirPYAsUf0dCHedkSlzIaU8NS97RKOgsUwgsPCzbzH6pNMrQNIrDdDfaXRyxQ== CPT Code(s) (test code = 3357) p6pbqENjQOMgrDPmDoXgBEIaSZFdp9vwYLPifARkFaNeOsFwTsZjTvbnlJQkUJWzJaAlj9oxt089yUHl r4ycXZGpKoI8qDGxYKTjnIFsE107a1esr6hwqhJnuTX0REVeROW8MCgsonNeerS4CMfekTFxOmI9EPap ihMqSZqeqtZdydWxWii2IAAyK123CGQ8iRiob2pjQD H9WGQgDUOsVkTtVo9etTQsT706ZJUnWKUMPRRsgUy9KCBsejSnfvRelFBTq551F037j1fvOZEmkdIdyN lKkbpox0iaV564CWYvtCCsnmJyDaAsCYNwzYTyuVI4ZAYuWR8ebctuCpFeGT5qgcfkBgGlPU4eyll7Jm XhZU9susgvGnZoDYohICTbalcuDWCos4MnzdrbQA4v X2Ffk5Q7jR9ouVBdHTGoaLEcNqUeWVGsbp6bfMEeVQxnw0FpRPU8dsL3lUNoqOLiQRXaAO69Bhrjb2Rd VrogDEU5OSUsqyKfa3Ufp5maOfMknfEfC9nwI7UiLULqXPQiRJDnTqYsodIsf3Sdr9GbjPIfeOl1t0ea LTVkORVhjIuch4sdWDK1SJJtH6U5uAIfz4vgGNvtSP WziYK5nbxfZBeqHRAtkkR4slupQTgaENXbhZH3nueqZAxzJIWfIfM2gslkWLykFFOyIHX3JXunj224MB N7UDaeBlfgLUxjCUKcjjUilmTauIacVBTzZNDtLWmfWSBrDQiqPQUaBUZgRkTnmPubsBehkC7sHdKbOj VoESvaWX7eZHGoI4ttmUHtZDQxCPOxR5vbDhKkgQ1s oPdjPRbyvwRiJGw6LjX9XPsqRbfsSNpeXgJ6HMd3CmOvYCPybd4= CLINICAL HISTORY (test code = 3356) x9mhnPUoJOPzyVCdJuHiHBOfDGYec8uaBEQnhAHwBtUaFoMySkLhHokfrNYeUELaYuZme7ldr938aPNl v7jxEMHiTeL1oBBpPRFviUJtV145v9rxl2yahdGrvKV4MLHcKOX9DPxvgbPijfP7LKyrqPFkGzB8PXms wuYwKJkvblMzsxQrUyp1WINuB006OQH7zSetb3dsDX S8KFDoXYTwOaWnTq9bmAAmF387VIHwYCXXWLKotAp3CVGvxtNdbzNhuHHOm216W920v0sxFQQteiUvgQ rPoauoz7qcZ418ITOyqPCpafMyRbOuJOYpjIMtdTR4GLXzVB8xkejjVhTgBA2ldjtxKeWePA8wsoy7Vd RnZC9qkbehDuAdMJkoASDtdbkmJEWru2XzynhdUH7m Q7Iue6J8nX3emPEzCAYkeKKbEwUqUJXalg8heCLjBGlqj9OoITD2qmN1kJGriPQiVDRfWQ90Sliys4Kh UeudAZU9NXKeznCfb6Avl4hiGyHnhtViP0ugV3NaCLInCWIqXYWtSrMgcrQhx6Lns5RwwZExeLu0g6jg ILKtLWDriHfrt6qsKQF1FBLwR4H0zWLdr2ydHHwsHY CbrMS9emzsRGiiVFCveiI9eexpVCclXDOvzOF5jwxsPWxbMZJuZuQ5jvpeTGuoLDNbSLE9LWxum135VU S7LGozSerfIUklFYPcknDjdaEnvWauJRKgBDIqBXhvKISwVIuhOXGhJRHsZeVqvYxhzIcfwL8rPcZxKm GkPXdzNY7jJIKjA2qzxXQjDPZrZJNbO3xmIlOtkP1i jOavYQutudLtFVFsgvQuPIeqk4XkomFzayRtEB7izTAkvCRtk8dsQFB0 SPECIMEN SOURCE (test code = 3377) d1axsHOaGYUpmRLyCzQpQZSqAZQvz1esYHVmhXXeYuEmMlSnHeRwBwucvNOsWQHeDpTqu0yvg757kOVz x9cqMKPzFnL5wWSmRGSieENcR045k5ynh5nbmqUjtOK6KJHvRTQ5NShjhrTagkY5HTlywYFrVeS2KSzr meXgMOdppfCbfeCuEqq3UMWgV994YPR6mThaf8rdSX M8NOPfITFiXcBdHu7kaXDmP153LJTqBNUEOOLrmFr4GUPstcHounIwjADNq969T283s7qwVBJablUtmY rVwfcff7vwN251TPJjvTEmroKbCoLmBSRuiTJvwPA2BSTjVE3ztkyfUuLtBN8vnhyfDiOoAI3usxg2Or VwGO7uhkvwIqIhIOjuKWOuwtwrIUFdi3LxnhqiDK6l I9Ayn2U2zE9ycAHjEQChkXVoInKxDVRuao1fxDZlWUdut1FpFEU6rwJ5qKPwsPTxXIWmND31Rlmpv7Ob FrlkLQK5EXIhpnWfn2Oqd8mjUoUxhpRqI0hxE3VvIZDoVBEdFIVxUrWnybYbi1Ffk9GbpETwySr4z3mh CXSoSZLzvGxbz2dkGTR8HTAqX8R5cBEii4njTLzwWP AroQX4futzAIooZWUgggV7dsahJZeeZBWlwCF0yqaeDUkbZMVmVbX6atpkTTaoZYJoMOM0WOauj366EE A6XHczCqykCPaqGFHjwiPehfTeiPkkKZRrXMUsKIxvWVYsPJkdFNJvVVLwNlPchLucqWpyrK8jIgDrEw WrPHclHW0fFIUrG1jqgSOrWUWpRAWyD3zeOaHbyL 3ylJscOAydbcAcSIOWQKYaR9wiEE6km0NtsQBgcG== GROSS DESCRIPTION (test code = 3366) a5sviKZdYVCrjZQeLxMkZVJwSILia9mrZDWluFOlJtDhNgXcHuApNirytDRsSXMsYgNyq9tlr397wZRo f6auUPGtQsY1pBFmYSUhhQAeJ091WRSoMXpna1dgo8UxILAwyKWdl1V8IZTEjcnlaXz0eCcjF35pi9O6 IyagT9kxJJElDNTiA8JlGG1yHSDvHah6FQI0JFT0PO LjFCLnS5WaKR7eLSEhgUWvEBo8p8wjiTcoRYRnKSB9d0dvUYbirzCeSF0rrp5qjNc2w8uxdlVyNAJzEK NsaSOARFMiQ6KleVxsEi0ixMa6lVdgMcscRZR3Onk1AU8oft98omw8yNqtWVAwymeiWgU8XNnjUYVfqr bmWDb3KMyjKDFocXfxWSmrGFJmabusUSifQAExeJyo XIpiGPTjPaaqCWchUAGhQLK6PHmsb967ECV4KChnl3tpp8zyoUOkFso2HUXfKuPxXdumYEajb3Gsi5ey ONZvjy4nITL1xSByxRoks4W2gEKoPRCbqGBulpYkEWQlLfJ3CIlcUA6xcp31HUNbOPZ3dq7tdCHzdSti epVhxKPrRAzpD7PsWQUnh683UCMyN9DrGJVcz1A1rp MbAeHsOJRujQE2xcJ3CUAvJDk3hPUrgxY7rpYboJZyI2qyiE00CrFctCDhM4NzbB25YbKiyLZwP7LoxS 61HsRzkWPaB3PmbB09NoSjcXLxLPPseTTqBd6quBBkrSCue8XnnGPmVQywD06jb076SAJchzRaC6yqqM KcyqknoPMedpznSXsvztZ9ZGJhDCDtADtxARMsVRZw CxQsfEHjOxJmJwUpzBfciExvAPtqXoHoLWZqTEpoM8tyChOwCjHdJNJKInMTBSSpuXMwMUCdduFeeWLs SPCxsFPhRQJHXCFuhznoNUVaWBZwJiHygtYmogPjbNJjzKNnUTJusu4tsW0kSRFqCoXlvNulw8SxGS9q HJH9ljghWjVomgLkD3fbGCtapJMcQH95KQpaPE0bMR utGP2vOZZwQlQLf9GpoQCdkiPsTLRiwFcmhlVtFU8wCEPdi5ixapXjEJA6uT0rzeYscnUksBVtZh5upT DcJpFXcMFse6LiL7aqRF5soNUeEH13iQDcvWhbl0GonHk7hNAkNBkfYTXvc5CgkCJqNOPRLTTtELGJFB RtwTdaxPDwVZPccyMVSsAFJPBlwCSeAQEudpYin3Cx WJckslMhVSHogVXvMXCGOISyymeoMIFoPCYfWwEegpXuvTZizIlhrVIdpGpeI1WgMF2eENOkcy2sxh85 ysBbfcJmG2HiYPXkq45joKN5zOCxvILarIAoz9VvkN9cJXxmHCDvJ7VlX2F6BZIpHsWpiMOqNqGpzKPs NiPgW16kARBdXVJbeKFgiB9prkZralYkvAWyjIT9VH EtIT22aGOnnIwckT2xU2Mbu1B4xSEdZhWgVJJOVa9ab9ymZTW6 INTRAOPERATIVE CONSULTATION (test code = 3369) b3kvuFKpYDUysCTmBnAgSITkLYVvw9inANUubXYjLlLlCdMfHhUnEnawoQJjDCSuFgFbs0rky411iODq j7znYASjLiV6jGDnQUScvZXnS162u0eby8jkymEujLE9VCZfDDF7UStqleGfzgQ3NXgpiPUaEbN7LTjh fzNeLIcvfkDqdeZjDei2ETDhR114GVU0oZoth2egPE U7JOGeKUHsAqNsCn0eaVMwJ106NODgYIKSKQTcfRz3LXUpzeSgdyCxyCOCd398S315f3kwGJGbioCwjW hEywswa5qyN439VRZhfSXcnlBmTpAvSAWmpYExyDG4UQSvBM8ckrewAkVfNI8npnhcKgOnNE1yrrg7Ru YvEU4zrgraSwTmYZciNLIkwmafWRBdk4YfppkkGE0h D2Sbn8A8wC9rgIHnNEIxdKRjIxUxJYWizy9etCMjEOhuh1RvOWM2joA3vRDfnOUgVURdKD51Pnrqo4Au KatjLCY9AQViwvLgb0Uwl6yyJaDaiiNrM6vtS7JxSCCrZPQyMCDqMiNsagJxm9Nri8PwnLTsxXc6g6fj UUQlZOVljJxep4seZEN9ZNVqU1G3aWHon3kzCWvzBG JfcUA4srxzYXxjJASpwjO3bxhzTTidJOKawDA1ptbfAMllIWYwFjK9grfsVTtdXCEiJYQ8OVcda952BL I6BVflKlxcDVntOXRyhyDeouSjxPnqHTEaQHYqOHkjBXHdSGxdZHNvPXHpFhJkfElitRwxnS1vXrVmCp XnHRnyDY6fQKWhW5qioNWqOMBpEBOwK4brYdQlkC3b wIbwBDgzakEoYZDXRQYAZ8fGFK3VH0TyYOWIU6CCTNnzoDIrYIPnKW0aQLYACB6YJA6ZQEVbcALbBJNz eiXGiPDsvvXlcQw7fsLqwfXsecQuZeRgqUzkwlYex6G0DRKkLgrmLTDoJHjeX1fhoW6zN0YkIHWrAOHg LVF0TYSvoB1fWrSjzVUlrL== MICROSCOPIC DESCRIPTION (test code = 3371) l0uslMVdORJhtTNcPuMePXXmZBGoz4vmCTIdsMCsMdDpEwHjLmUmWwlevVOxCWYoJjQea2tmm795iYYx v4tvUGBoHjP7gCNeVVRquZFoU373m7fob5ymneCjhNO9RDCfKAD9EWnbbkJjruI3RMoeoNZoCtV5TQkl srPmUOodcvNlgmAzQbo3DWWiG062NQK9yNqfy9dbJQ J6APFzFZPmRuFtFg0maZNcG983EJPtERPFRHYvrRy1KCDxptRywhHqhZIFw427Z471q3caZURarnTrtJ nYbcmxa8ytA731PKLowBLvglLwLdXbHDVmuTXgkDG5LHQkZD0gozkgHyYkBL2azanhOeRhRP2jurk2Yb ViEQ4vikjxAzKqBLjiVCPijckhIKLik7YhkiypYV9j P9Utx4H1fB7gxDHmLINdxWIdMxZkSEWiqt0ozGFlKNzjw1ToWNY8xhD4bGJzpHNbNQMuUJ83Acadk5Gg IialQDJ3JAQkjwTmp9Mnl2nzWrVqjbBcY6ioO6WdXZDzZQWvVGDxAyOngaOci9Wrh8KzvVNdqRu6i8qt XKNwSKGmxFrql4vqWFM4QNSyF1S7uNHzj9utMPiwMC VoqZS5mdzeXUtmONYoceJ0rhxuWYkiFJCqqAM4xajrGLsmWPLwIqG6fggyOOtwLMGmJRQ5IBipm430VL Q4MYxrOemiWWslLXUbdoJqrqGxeXbqQQIpNFCxLAmnLVObAZsiGAEbXRTvIjGeySrlrLjrmN3dJhEyUh WtZKziAH3nJWWlV8jbhSIxQKRwGYIoT2mvHcJqoP3o wNomCTacfdNhDRAwioAwxb6vCSVkgeFBCMBoRNEIPQUkmk2= SPECIAL STUDIES (test code = 3376) [file] PpwQLaXfPpNpIpaCucrBtzPsjhEhJvNIJbRBjyC3dgJgEoXoUfEwxeMJZ3cW== [facility] [id number] 16:09:00Surgical Pathology Report Case: [id number] Authorizing Provider: Rich Foster MD Collected: 06/04/2019 1142 Ordering Location: [facility] Received: 06/04/2019 1149 SERVICES Pathologist: Pramod Vicente MD Specimens: A) - Mass, CP ANGLE MASS B) - Mass, CP ANGLE MASS A. 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 Imm unoperoxidase stains for Ki67 confirm a labelling index of 8.9% focally, but ove rall less than 3%. 34981 x 2; 99208; 33879Phidvxnqdacspooc angle massCP angle ma ssA. Received fresh labeled "CP angle mass" is fragmented castro-pink soft tissue m easuring in aggregate 0.5 x 0.3 x 0.2 cm. Touch preparations and frozen sections are performed. The specimen is entirely submitted in cassette FSA1. CYB/plB. R eceived in formalin labeled "CP angle mass" are multiple pieces of castro-brown irr egular soft tissue measuring in aggregate 1.2 x 0.5 x 0.5 cm. The specimen is arzola bmitted entirely in cassette B1. CYB/ewCP ANGLE MASS, BIOPSY: - MENINGIOMA The results are verbally reported by Dr. Vicente to OR-11 at 12:02 p.m. Performed on A and BThe interpretation of this case included the use of immunohistochemistry or special stains.Control Slides Examined: In-house known positive controls were evaluated along with the test tissue. These control slides run alongside of the patients sample show appropriate staining. Internal positive and negative cont rols when available are evaluated Immunohistochemistry technical testing was per formed at [facility], Pathology Laboratory where it was de veloped and its performance characteristics were determined. It has not been getachew ared or approved by the U.S. Food and Drug Administration. The FDA has determine d that such clearance or approval is not necessary. The test is used for clinica l purposes. It should not be regarded as investigational or for research. This l aboratory is certified under the Clinical Laboratory Improvement Amendments of 1 988 (CLIA-88) as qualified to perform high complexity clinical laboratory testin g.POC-Glucose [id number] 17:16:00* Test Item Value Reference Range Interpretation Comments POC-Glucose Meter (test code = 1538) 208 mg/dL 70-110 H : TESTED AT [facility] [address], [address]: Cardiovascular Invasive Specialist/Sprinkler Truck Driver ID = [id number] for JUMA EMMANUEL Lab Interpretation (test code = 89068-2) [facility]normal [facility] [id number] 17:16:00* Test Item Value Reference Range Interpretation Comments POC-GLUCOSE METER (BEAKER) (test code = 1538) 208 mg/dL 70-110 H : TESTED AT [facility] [address], [address]: Cardiovascular Invasive Specialist/Sprinkler Truck Driver ID = [id number] for EMMANUELKATLYNJUMA FL, ESOPH, SWALLOW FUNCTION, WITH CINE OR [id number] 13:38:00Reason for exam:->swallow disfunction per speech evaluation; discharge pendingFINAL REPORT Modified barium swallow exam with speech pathology service CLINICAL HISTORY: swallow disfunction per speech evaluation; discharge pending IMPRESSION: Please see the speech pathology service report for details. Barium contrast of multiple consistencies is given to the patient to swallow. Fluoroscopic observation is performed during swallowing. No aspiration or p enetration. Fluoro time: 1.2 Number of images: 14 Signed: Julito Courtney Karen ified Date/Time: 06/06/2019 13:38:36 Reading Location: [address] esoph swallow funct with cine [id number] 13:38:00Interface, External Ris In - 06/06/2019 1:40 PM CSTFINAL REPORT Modified barium swallow exam with speech pathology service CLINICAL HISTORY: swallow disfunction per speech evaluation; discharge pending IMPRESSION: Please see the speech pathology service report for details. Barium contrast of multiple consistencies is given to the patient to swallow. Fluoroscopic observation is performed during swallowing. No aspiration or penetration. Fluoro time: 1.2 Number of images: 14 Signed: Julito Courtney Verified Date/Time: 06/06/2019 13:38:36 Reading Location: [address] [facility] [id number] 12:35:00* Test Item Value Reference Range Interpretation Comments POC-GLUCOSE METER (BEAKER) (test code = 1538) 146 mg/dL 70-110 H : TESTED AT [address], [address]: Cardiovascular Invasive Specialist/Sprinkler Truck Driver ID = [id number] for JUMA EMMANUEL POCT-GLUCOSE [id number] 08:58:00* Test Item Value Reference Range Interpretation Comments POC-GLUCOSE METER (BEAKER) (test code = 1538) 116 mg/dL 70-110 H : Notified RN/MD: TESTED AT [address], [address]: Cardiovascular Invasive Specialist/Sprinkler Truck Driver ID = [id number] for JUMA EMMANUEL Basic Metabolic [id number] 06:10:00* Test Item Value Reference Range Interpretation Comments Sodium (test code = 2951-2) 142 meq/L 136-145 Potassium (test code = 2823-3) 4.0 meq/L 3.5-5.1 Chloride (test code = 2075-0) 109 meq/L 98-107 H CO2 (test code = 8-9) 25 meq/L 22-29 BUN (test code = 3094-0) 14 mg/dL 7-21 Creatinine (test code = 2160-0) 0.70 mg/dL 0.57-1.25 Glucose (test code = 2345-7) 131 mg/dL 70-105 H Calcium (test code = 11764-5) 9.2 mg/dL 8.4-10.2 EGFR (test code = 55571-3) 85 mL/min/1.73 sq m ESTIMATED GFR IS NOT ACCURATE CREATININE CLEARANCE IN PREDICTING GLOMERULAR FILTRATION RATE. ESTIMATED GFR IS NOT APPLICABLE FOR DIALYSIS PATIENTS. FRANCOIS (test code = FRANCOIS) Cardiovascular Invasive Specialist ID - LEANN W Lab Interpretation (test code = 39134-6) Abnormal [facility] 06:10:00* Test Item Value Reference Range Interpretation Comments Magnesium (test code = 74229-0) 2.2 mg/dL 1.6-2.6 FRANCOIS (test code = FRANCOIS) Cardiovascular Invasive Specialist ID - LEANN W Lab Interpretation (test code = 01541-1) Normal [facility] 06:10:00* Test Item Value Reference Range Interpretation Comments Phosphorus (test code = 2777-1) 3.0 mg/dL 2.3-4.7 FRANCOIS (test code = FRANCOIS) Cardiovascular Invasive Specialist ID - LEANN W Lab Interpretation (test code = 92964-0) Normal [facility]OS[facility]US2020-02-06 06:10:00* Test Item Value Reference Range Interpretation Comments PHOSPHORUS (BEAKER) (test code = 604) 3.0 mg/dL 2.3-4.7 Cardiovascular Invasive Specialist ID - LEANN [id number] 06:10:00* Test Item Value Reference Range Interpretation Comments MAGNESIUM (BEAKER) (test code = 627) 2.2 mg/dL 1.6-2.6 Cardiovascular Invasive Specialist DIRK NORIEGA WBASIC METABOLIC [id number] 06:10:00* Test Item Value Reference Range Interpretation Comments SODIUM (BEAKER) (test code = 381) 142 meq/L 136-145 POTASSIUM (BEAKER) (test code = 379) 4.0 meq/L 3.5-5.1 CHLORIDE (BEAKER) (test code = 382) 109 meq/L 98-107 H CO2 (BEAKER) (test code = 355) 25 meq/L 22-29 BLOOD UREA NITROGEN (BEAKER) (test code = 354) 14 mg/dL 7-21 CREATININE (BEAKER) (test code = 358) 0.70 mg/dL 0.57-1.25 GLUCOSE RANDOM (BEAKER) (test code = 652) 131 mg/dL 70-105 H CALCIUM (BEAKER) (test code = 697) 9.2 mg/dL 8.4-10.2 EGFR (BEAKER) (test code = 1092) 85 mL/min/1.73 sq m ESTIMATED GFR IS NOT ACCURATE CREATININE CLEARANCE IN PREDICTING GLOMERULAR FILTRATION RATE. ESTIMATED GFR IS NOT APPLICABLE FOR DIALYSIS PATIENTS. Cardiovascular Invasive Specialist DIRK NORIEGA WCBC (Hemogram only)2019-06-06 05:26:00* Test Item Value Reference Range Interpretation Comments WBC (test code = 6690-2) 17.4 3.5- 10.5 K/L H RBC (test code = 789-8) 4.18 3.93- 5.22 M/L MCHC (test code = 786-4) 33.4 32.2- 35.5 GM/DL Hematocrit (test code = 4544-3) 37.4 % 34.1-44.9 MCV (test code = 787-2) 89.5 fL 79.4-94.8 MCH (test code = 785-6) 29.9 pg 25.6-32.2 RDW (test code = 788-0) 14.2 % 11.7-14.4 Platelets (test code = 777-3) 371 150- 450 K/CU MM MPV (test code = 19195-8) 10.0 fL 9.4-12.3 nRBC (test code = 413) 0 0- 0 /100 WBC Lab Interpretation (test code = 26866-3) Abnormal [facility] (HEMOGRAM ONLY)2019-06-06 05:26:00* Test Item Value Reference Range Interpretation Comments WHITE BLOOD CELL COUNT (BEAKER) (test code = 775) 17.4 K/ L 3.5- 10.5 H RED BLOOD CELL COUNT (BEAKER) (test code = 761) 4.18 M/ L 3.93-5 .22 HEMOGLOBIN (BEAKER) (test code = 410) 12.5 GM/DL 11.2-15.7 HEMATOCRIT (BEAKER) (test code = 411) 37.4 % 34.1-44.9 MEAN CORPUSCULAR VOLUME (BEAKER) (test code = 753) 89.5 fL 79. 4-94.8 MEAN CORPUSCULAR HEMOGLOBIN (BEAKER) (test code = 751) 29.9 pg 25.6-32.2 MEAN CORPUSCULAR HEMOGLOBIN CONC (BEAKER) (test code = 752) 33.4 GM/DL 32.2-35.5 RED CELL DISTRIBUTION WIDTH (BEAKER) (test code = 412) 14.2 % 11.7-14.4 PLATELET COUNT (BEAKER) (test code = 756) 371 K/CU MM 150-450 MEAN PLATELET VOLUME (BEAKER) (test code = 754) 10.0 fL 9.4-12 .3 NUCLEATED RED BLOOD CELLS (BEAKER) (test code = 413) 0 /100 WBC 0 -0 POCT-GLUCOSE [id number] 21:58:00* Test Item Value Reference Range Interpretation Comments POC-GLUCOSE METER (BEAKER) (test code = 1538) 135 mg/dL 70-110 H : TESTED AT [facility] [address], [address]: Cardiovascular Invasive Specialist/Sprinkler Truck Driver ID = [id number] for CECE DELATORRE MR, BRAIN, [id number] 20:38:00FINAL REPORT MR, BRAIN, WITH \\T\\ WITHOUT CONTRAST INDICATION: s/p right retrosigmoid craniotomy for tumor resection TECHNIQUE: Multiplanar, multisequence MR imaging of the brain prior to and following intravenous administration of contrast. 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 Residual enhancing mass along the right petrous ridge measures approximately 1 cm in maximum AP dimension and approximately 1.7 cm CC. Markedly improved mass effect upon the brainstem and right middle cerebellar peduncle. Parenchymal FLAIR hyperintensity within the brainstem is similar. Small focus of cytotoxic edema within the right hemipons, blood thorax in the resection bed and scattered pneumocephalus are expected postoperatively. Ventricular caliber is unchanged. No restricted diffusion outside of the resection bed to suggest acute infarct. Visualized intracranial flow voids are of normal course and caliber. Sinuses: No evidence of sinusitis. Mastoids are clear. Orbits: Globes are intact. Calvarium \\T\\ scalp: Unremarkable. IMPRESSION:Exerted postoperative changes following significant debulking of the right petroclival meningioma. Improved mass effect upon the brainstem and right cerebellar peduncle. Ventricular caliber is unchanged. Signed: Jailyn Syed Verified Date/Time: 06/05/2019 20:38:34 -GLUCOSE [id number] 18:20:00* Test Item Value Reference Range Interpretation Comments POC-GLUCOSE METER (BEAKER) (test code = 1538) 138 mg/dL 70-110 H : Notified RN/MD: TESTED AT [address], [address]: Cardiovascular Invasive Specialist/Sprinkler Truck Driver ID = [id number] for Cades, Tash POCT-GLUCOSE [id number] 12:02:00* Test Item Value Reference Range Interpretation Comments POC-GLUCOSE METER (BEAKER) (test code = 1538) 148 mg/dL 70-110 H : Notified RN/MD: TESTED AT [address], [address]: Cardiovascular Invasive Specialist/Sprinkler Truck Driver ID = [id number] for Cades, Tash [id number] 06:24:00* Test Item Value Reference Range Interpretation Comments PHOSPHORUS (BEAKER) (test code = 604) 3.3 mg/dL 2.3-4.7 Cardiovascular Invasive Specialist ID - PAVAN [id number] 06:24:00* Test Item Value Reference Range Interpretation Comments MAGNESIUM (BEAKER) (test code = 627) 2.1 mg/dL 1.6-2.6 Cardiovascular Invasive Specialist DIRK BROWNE MBASIC METABOLIC [id number] 06:24:00* Test Item Value Reference Range Interpretation Comments SODIUM (BEAKER) (test code = 381) 140 meq/L 136-145 POTASSIUM (BEAKER) (test code = 379) 3.7 meq/L 3.5-5.1 CHLORIDE (BEAKER) (test code = 382) 110 meq/L 98-107 H CO2 (BEAKER) (test code = 355) 21 meq/L 22-29 L BLOOD UREA NITROGEN (BEAKER) (test code = 354) 12 mg/dL 7-21 CREATININE (BEAKER) (test code = 358) 0.79 mg/dL 0.57-1.25 GLUCOSE RANDOM (BEAKER) (test code = 652) 155 mg/dL 70-105 H CALCIUM (BEAKER) (test code = 697) 8.8 mg/dL 8.4-10.2 EGFR (BEAKER) (test code = 1092) 74 mL/min/1.73 sq m ESTIMATED GFR IS NOT ACCURATE CREATININE CLEARANCE IN PREDICTING GLOMERULAR FILTRATION RATE. ESTIMATED GFR IS NOT APPLICABLE FOR DIALYSIS PATIENTS. Cardiovascular Invasive Specialist DIRK BROWNE [facility] (HEMOGRAM ONLY)2019-06-05 06:03:00* Test Item Value Reference Range Interpretation Comments WHITE BLOOD CELL COUNT (BEAKER) (test code = 775) 13.8 K/ L 3.5- 10.5 H RED BLOOD CELL COUNT (BEAKER) (test code = 761) 4.17 M/ L 3.93-5 .22 HEMOGLOBIN (BEAKER) (test code = 410) 12.2 GM/DL 11.2-15.7 HEMATOCRIT (BEAKER) (test code = 411) 37.2 % 34.1-44.9 MEAN CORPUSCULAR VOLUME (BEAKER) (test code = 753) 89.2 fL 79. 4-94.8 MEAN CORPUSCULAR HEMOGLOBIN (BEAKER) (test code = 751) 29.3 pg 25.6-32.2 MEAN CORPUSCULAR HEMOGLOBIN CONC (BEAKER) (test code = 752) 32.8 GM/DL 32.2-35.5 RED CELL DISTRIBUTION WIDTH (BEAKER) (test code = 412) 13.7 % 11.7-14.4 PLATELET COUNT (BEAKER) (test code = 756) 338 K/CU MM 150-450 MEAN PLATELET VOLUME (BEAKER) (test code = 754) 9.5 fL 9.4-12 .3 NUCLEATED RED BLOOD CELLS (BEAKER) (test code = 413) 0 /100 WBC 0 -0 ECG 12 [id number] 08:03:33Interface, External Ris In - 06/04/2019 8:03 AM CSTVentricular Rate 72 BPMAtrial Rate 72 BPMP-R Interval 138 msQRS Duration 86 msQ-T Interval 412 msQTC Calculation(Bazett) 451 msP [place] 31 degreesR [place] -29 degreesT [place] 22 degreesNormal sinus rhythmNormal ECGWhen compared with ECG of 24-MAR-2017 21:09,No significant change was foundConfirmed by Dale BEST MICHAEL (150) on 06/04/2019 8:03:27 [facility] 2019-06-04 07:52:00* Test Item Value Reference Range Interpretation Comments ABO Grouping (test code = 2588) O Rh Factor (test code = 2589) POS [facility] CenterUrinalysis w/[id number] 09:32:00* Test Item Value Reference Range Interpretation Comments Color, UA (test code = 5778-6) Colorless Clarity, UA (test code = 5767-9) Clear Specific [place], UA (test code = 5811-5) 1.003 1.001-1.035 pH, UA (test code = 5803-2) 7.5 5.0-8.0 Protein, UA (test code = 46751-4) Negative Negative Glucose, UA (test code = 365) Negative Negative Ketones, UA (test code = 2514-8) Negative Negative Bilirubin, UA (test code = 48399-0) Negative Negative Blood, UA (test code = 38961-9) Negative Negative Nitrite, UA (test code = 5802-4) Negative Negative Leukocytes, UA (test code = 5799-2) Negative Negative Urobilinogen, UA (test code = 08800-1) 0.2 mg/dL 0.2-1 RBC, UA (test code = 02972-7) 0 /HPF WBC, UA (test code = 5821-4) 0 /HPF Squam Epithel, UA (test code = 47641-3) <1 /HPF Specimen Source (test code = 2795) Urine, Clean Catch FRANCOIS (test code = FRANCOIS) Cardiovascular Invasive Specialist ID - [auto]Cardiovascular Invasive Specialist ID - tech [facility]/ [id number] 09:32:00* Test Item Value Reference Range Interpretation Comments COLOR (BEAKER) (test code = 470) Colorless CLARITY (BEAKER) (test code = 469) Clear SPECIFIC GRAVITY UA (BEAKER) (test code = 468) 1.003 1.001-1 .035 PH UA (BEAKER) (test code = 467) 7.5 5.0-8.0 PROTEIN UA (BEAKER) (test code = 464) Negative Negative GLUCOSE UA (BEAKER) (test code = 365) Negative Negative KETONES UA (BEAKER) (test code = 371) Negative Negative BILIRUBIN UA (BEAKER) (test code = 462) Negative Negative BLOOD UA (BEAKER) (test code = 461) Negative Negative NITRITE UA (BEAKER) (test code = 465) Negative Negative LEUKOCYTE ESTERASE UA (BEAKER) (test code = 466) Negative Negat dora UROBILINOGEN UA (BEAKER) (test code = 463) 0.2 mg/dL 0.2-1.0 RBC UA (BEAKER) (test code = 519) 0 /HPF WBC UA (BEAKER) (test code = 520) 0 /HPF SQUAMOUS EPITHELIAL (BEAKER) (test code = 516) < /HPF SOURCE(BEAKER) (test code = 2795) Urine, Clean Catch Cardiovascular Invasive Specialist ID - [auto]Cardiovascular Invasive Specialist ID - techBASIC METABOLIC [id number] 09:08:00* Test Item Value Reference Range Interpretation Comments SODIUM (BEAKER) (test code = 381) 142 meq/L 136-145 POTASSIUM (BEAKER) (test code = 379) 4.0 meq/L 3.5-5.1 CHLORIDE (BEAKER) (test code = 382) 106 meq/L 98-107 CO2 (BEAKER) (test code = 355) 29 meq/L 22-29 BLOOD UREA NITROGEN (BEAKER) (test code = 354) 9 mg/dL 7-21 CREATININE (BEAKER) (test code = 358) 0.77 mg/dL 0.57-1.25 GLUCOSE RANDOM (BEAKER) (test code = 652) 102 mg/dL 70-105 CALCIUM (BEAKER) (test code = 697) 9.7 mg/dL 8.4-10.2 EGFR (BEAKER) (test code = 1092) 76 mL/min/1.73 sq m ESTIMATED GFR IS NOT ACCURATE CREATININE CLEARANCE IN PREDICTING GLOMERULAR FILTRATION RATE. ESTIMATED GFR IS NOT APPLICABLE FOR DIALYSIS PATIENTS. Cardiovascular Invasive Specialist ID - STEPHANIE FPT/[id number] 08:57:00* Test Item Value Reference Range Interpretation Comments Protime (test code = 5902-2) 12.5 11.9- 14.2 seconds INR (test code = 6301-6) 1.0 <=5.9 PTT (test code = 85038-4) 32.6 22.5- 36.0 seconds FRANCOIS (test code = FRANCOIS) Effective 09/26/2018: PT Refe rence Range ChangeNew: 11.9- 14.2 Previous: 11.7-14.7 RECOMMENDED COUMADIN/WARFARIN INR THERAPY RANGESSTANDARD DOSE: 2.0-3.0 Includes: PROPHYLAXIS for venous thrombosis, sys temic embolization; TREATMENT for venous thrombosis and/or pulmonary embolus.HIGH RISK: Target INR is 2.5-3.5 for patients wiht mechanical heart valves. Lab Interpretation (test code = 56186-2) Normal [facility]PT/[id number] 08:57:00* Test Item Value Reference Range Interpretation Comments PROTIME (BEAKER) (test code = 759) 12.5 seconds 11.9-14.2 INR (BEAKER) (test code = 370) 1.0 <=5.9 PARTIAL THROMBOPLASTIN TIME (BEAKER) (test code = 760) 32.6 seconds 22.5-36.0 Effective 09/26/2018: PT Reference Range ChangeNew: 11.9-14.2 Previous: 11.7-14. 7RECOMMENDED COUMADIN/WARFARIN INR THERAPY RANGESSTANDARD DOSE: 2.0-3.0 Include s: PROPHYLAXIS for venous thrombosis, systemic embolization; TREATMENT for venou s thrombosis and/or pulmonary embolus.HIGH RISK: Target INR is 2.5-3.5 for patie nts wiht mechanical heart valves.CBC with platelet count + automated diff 2019-06-03 08:42:00* Test Item Value Reference Range Interpretation Comments WBC (test code = 6690-2) 5.4 3.5- 10.5 K/L RBC (test code = 789-8) 4.90 3.93- 5.22 M/L MCHC (test code = 786-4) 33.1 32.2- 35.5 GM/DL Hematocrit (test code = 4544-3) 44.1 % 34.1-44.9 MCV (test code = 787-2) 90.0 fL 79.4-94.8 MCH (test code = 785-6) 29.8 pg 25.6-32.2 RDW (test code = 788-0) 13.7 % 11.7-14.4 Platelets (test code = 777-3) 387 150- 450 K/CU MM MPV (test code = 53458-6) 9.5 fL 9.4-12.3 nRBC (test code = 413) 0 0- 0 /100 WBC % Neutros (test code = 429) 51 % % Lymphs (test code = 430) 38 % % Monos (test code = 431) 9 % % Eos (test code = 432) 2 % % Baso (test code = 437) 1 % # Neutros (test code = 670) 2.74 1.56- 6.13 K/L # Lymphs (test code = 414) 2.03 1.18- 3.74 K/L # Monos (test code = 415) 0.49 0.24- 0.36 K/L H # Eos (test code = 416) 0.08 0.04- 0.36 K/L # Baso (test code = 417) 0.06 0.01- 0.08 K/L Immature Granulocytes-Relative (test code = 2801) 0 % 0-1 Lab Interpretation (test code = 04976-8) Abnormal [facility]PLT COUNT & AUTO [id number] 08:42:00* Test Item Value Reference Range Interpretation Comments WHITE BLOOD CELL COUNT (BEAKER) (test code = 775) 5.4 K/ L 3.5- 10.5 RED BLOOD CELL COUNT (BEAKER) (test code = 761) 4.90 M/ L 3.93-5 .22 HEMOGLOBIN (BEAKER) (test code = 410) 14.6 GM/DL 11.2-15.7 HEMATOCRIT (BEAKER) (test code = 411) 44.1 % 34.1-44.9 MEAN CORPUSCULAR VOLUME (BEAKER) (test code = 753) 90.0 fL 79. 4-94.8 MEAN CORPUSCULAR HEMOGLOBIN (BEAKER) (test code = 751) 29.8 pg 25.6-32.2 MEAN CORPUSCULAR HEMOGLOBIN CONC (BEAKER) (test code = 752) 33.1 GM/DL 32.2-35.5 RED CELL DISTRIBUTION WIDTH (BEAKER) (test code = 412) 13.7 % 11.7-14.4 PLATELET COUNT (BEAKER) (test code = 756) 387 K/CU MM 150-450 MEAN PLATELET VOLUME (BEAKER) (test code = 754) 9.5 fL 9.4-12 .3 NUCLEATED RED BLOOD CELLS (BEAKER) (test code = 413) 0 /100 WBC 0 -0 NEUTROPHILS RELATIVE PERCENT (BEAKER) (test code = 429) 51 % LYMPHOCYTES RELATIVE PERCENT (BEAKER) (test code = 430) 38 % MONOCYTES RELATIVE PERCENT (BEAKER) (test code = 431) 9 % EOSINOPHILS RELATIVE PERCENT (BEAKER) (test code = 432) 2 % BASOPHILS RELATIVE PERCENT (BEAKER) (test code = 437) 1 % NEUTROPHILS ABSOLUTE COUNT (BEAKER) (test code = 670) 2.74 K/ L 1.56-6.13 LYMPHOCYTES ABSOLUTE COUNT (BEAKER) (test code = 414) 2.03 K/ L 1.18-3.74 MONOCYTES ABSOLUTE COUNT (BEAKER) (test code = 415) 0.49 K/ L 0. 24-0.36 H EOSINOPHILS ABSOLUTE COUNT (BEAKER) (test code = 416) 0.08 K/ L 0.04-0.36 BASOPHILS ABSOLUTE COUNT (BEAKER) (test code = 417) 0.06 K/ L 0. 01-0.08 IMMATURE GRANULOCYTES-RELATIVE PERCENT (BEAKER) (test code = 2801) 0 % 0-1 MR, BRAIN, [id number] 11:02:00FINAL REPORT MRI Brain with and without contrast Clinical History: meningioma Technique: MRI of the brain utilizing axial T1, T2, FLAIR, GRE, DWI, sagittal T1; and postgadolinium axial, sagittal, and coronal T1-weighted images. Stealth treatment planning sequences are included. Comparisons: Outside MRI 03/14/2018 Findings: The dural based enhancing mass along the right petrous ridge has increased in size measuring 1.9 cm TV x 2.4 cm AP x 2.8 cm CC, previously 1.4 cm x 2.2 cm x 2.4 cm. A dural tail of extension into the adjacent right internal auditory canal has increased in length measuring 12 mm deep to the orifice, previously 6 mm. There is greater mass effect on the right midbrain and kaitlyn with new T2 FLAIR hyperintense vasogenic edema. Narrowing of the cerebral aqueduct results in increased mild lateral and third ventricular compatible with obstructive hydrocephalus. A tail of extension along the right tentorium is again seen. There are no other enhancing masses in the brain. There is no evidence of acute infarct or hemorrhage. There is no supratentorial midline shift. There are no extra-axial fluid collections. The craniocervical junction is preserved. The major intracranial flow-voids appear patent. Please note that the mass likely contacts the right intradural vertebral artery, right posterior cerebral artery and superior cerebellar artery. IMPRESSION: Since 03/14/2018, increased size of the right petrous ridge/posterior fossa meningioma. Specifically, increased mass effect on the brainstem results in new vasogenic edema and mild obstructive hydrocephalus. Signed: Brandon Weber MDReport Verified Date/Time: 05/27/2019 11 :02:35 Reading Location: [facility] C013V Neuro Reading Room Electronically sig cristóbal by: BRANDON WEBER M.D. on 05/27/2019 11:02 AM HXG-[id number] 09:14:00* Test Item Value Reference Range Interpretation Comments POC-Creatinine (test code = 1859) 0.7 mg/dL 0.6-1.3 TESTED AT [address] [address] POC-EGFR (test code = 1860) 85 mL/min/1.73M2 [facility]POCT-[id number] 09:14:00* Test Item Value Reference Range Interpretation Comments POC-CREATININE (JENNIFFER) (test code = 1859) 0.7 mg/dL 0.6-1.3 TESTED AT [address] [address] POC-EGFR (JENNIFFER) (test code = 1860) 85 mL/min/1.73M2 Type and screen, [id number] 13:41:00* Test Item Value Reference Range Interpretation Comments ABO/RH AUTOMATED (JENNIFFER) (test code = 2260) O POSITIVE Ab Scrn (test code = 890-4) NEGATIVE [facility]D-[id number] 09:31:00* Test Item Value Reference Range Interpretation Comments D-DIMER QUANTITATIVE (JENNIFFER) (test code = 671) < MG/L FEU <0.50 Intended Use: The D-Dimer Assay can be used to aid in the diagnosis of Deep Vein Thrombosis (DVT) and Pulmonary Embolism Disease (PED).In patients with low pre- test probability, various studies concerning STA Liatest D-dimer test have repor theresa that with a cutoff value of 0.50 MG/L FEU, the Negative Predictive Value (STILE RIPSAW OPERATOR V) regarding the exclusion of thrombosis is within 95-100% range.PET, CARDIAC PERFUSION MULTIPLE STUDIES, REST AND [id number] 17:52:00Lexiscan Pharmacologic Stress. Reason for exam:->CHEST PAINFINAL REPORT PROCEDURE: Rest/Stress MYOCARDIAL PERFUSION PET with regadenoson\\XA9\\ CPT CODE: 62955 INDICATION: Chest pain HISTORY: Cardiac risk factors: None documented. Other cardiovascular history: Atrial fibrillation, atrial flutter. Recent cardiac symptoms: Chest pain. Current cardiovascular-related medications: Aspirin. PROTOCOL: Limited low-dose CT imaging was performed for attenuation correction. 40 mCi of Rb-82 chloride was i njected iv at rest, and gated PET (positron emission tomography) images were obt ained. Subsequently, 40 mCi of Rb-82 chloride was injected iv at expected peak p harmacologic effect, and gated PET images were obtained. PRELIMINARY STRESS JENNY T DATA FROM NONINVASIVE CARDIOLOGY: Pharmacologic stress was by 10-second iv infusion of 0.4 mg of regadenoson. Radiotracer was injected [address] art of stress. Heart rate was 98 beats/min at rest and 1:30 beats/min (81% of MP HR) at tracer injection. BP was 149/69 mmHg at rest and 142/80 mmHg at tracer in jection. Stress was stopped for predetermined endpoint. The patient experienced dyspnea; treatment was not required. Preliminary ECG evaluation revealed sinus r hythm at rest and no ischemic changes with stress. (Final ECG interpretation and other stress and monitoring data are reported separately by Cardiology.) IMAGI NG FINDINGS: Study quality is good. Images obtained after rest and stress in jections show normal LV activity. LV and RV volumes appear normal. Gated images obtained at rest and with stress show normal LV wall motion and thickening. LV EF at rest is greater than 70%. LVEF at stress is greater than 70%. IMPRESSION: 1. Normal study. 2. Appropriate pharmacologic stress. 3. Normal myocardial perfusion. 4. Normal resting LV function. Normal stress function. 5. Normal e xtracardiac tracer distribution. 6. No previous [facility] study for comparison. N ONINVASIVE RISK STRATIFICATION: The above findings are considered low risk (<1% annual mortality rate) based on the following criterion:- Normal or small haydee cardial perfusion defect at rest or with stressJACC. 2012;59(9):857-81.) Signed: Robin Castillo [facility] Verified Date/Time: 03/25/2017 17:52:23 Electronical ly signed by: ROBIN CASTILLO M.D. on 03/25/2017 05:52 PM HEMOGLOBIN A1C 2017-03-25 12:12:00* Test Item Value Reference Range Interpretation Comments HEMOGLOBIN A1C (JENNIFFER) (test code = 368) 5.6 % 4.3-6.1 TROPONIN [id number] 10:39:00* Test Item Value Reference Range Interpretation Comments TROPONIN I (JENNIFFER) (test code = 397) < ng/mL 0.00-0.03 Troponin I (TnI) levels must be interpreted in the context of the presenting sym ptoms and the clinical findings. Elevated TnI levels indicate myocardial damage, but are not specific for ischemic heart disease. Elevated TnI levels are seen i n patients with other cardiac conditions (including myocarditis and congestive h eart failure), and slight TnI elevations occur in patients with other conditions , including sepsis, renal failure, acidosis, acute neurological disease, and per sistent tachyarrhythmia.TROPONIN [id number] 05:57:00* Test Item Value Reference Range Interpretation Comments TROPONIN I (BEAKER) (test code = 397) < ng/mL 0.00-0.03 Troponin I (TnI) levels must be interpreted in the context of the presenting sym ptoms and the clinical findings. Elevated TnI levels indicate myocardial damage, but are not specific for ischemic heart disease. Elevated TnI levels are seen i n patients with other cardiac conditions (including myocarditis and congestive h eart failure), and slight TnI elevations occur in patients with other conditions , including sepsis, renal failure, acidosis, acute neurological disease, and per sistent tachyarrhythmia.BASIC METABOLIC [id number] 00:05:00* Test Item Value Reference Range Interpretation Comments SODIUM (BEAKER) (test code = 381) 137 meq/L 136-145 POTASSIUM (BEAKER) (test code = 379) 4.0 meq/L 3.5-5.1 CHLORIDE (BEAKER) (test code = 382) 104 meq/L 98-107 CO2 (BEAKER) (test code = 355) 20 meq/L 22-29 L BLOOD UREA NITROGEN (BEAKER) (test code = 354) 8 mg/dL 7-21 CREATININE (BEAKER) (test code = 358) 0.75 mg/dL 0.57-1.25 GLUCOSE RANDOM (BEAKER) (test code = 652) 181 mg/dL 70-105 H CALCIUM (BEAKER) (test code = 697) 9.9 mg/dL 8.4-10.2 EGFR (BEAKER) (test code = 1092) mL/min/1.73 sq m INSUFFICIENT CLINICAL DATA TO CALCULATE ESTIMATED GFR. [id number] 00:00:00* Test Item Value Reference Range Interpretation Comments MAGNESIUM (BEAKER) (test code = 627) 2.3 mg/dL 1.6-2.6 LIPID [id number] 00:00:00* Test Item Value Reference Range Interpretation Comments TRIGLYCERIDES (BEAKER) (test code = 540) 92 mg/dL CHOLESTEROL (BEAKER) (test code = 631) 268 mg/dL HDL CHOLESTEROL (BEAKER) (test code = 976) 83 mg/dL LDL CHOLESTEROL CALCULATED (BEAKER) (test code = 633) 167 mg/dL Triglyceride Reference Range: Low Risk <150 Borderline 150-199 High Risk 200-499 Very High Risk >=500Cholesterol Reference Range: Low Risk <200 Borderline 200-239 High Risk >240HDL Cholesterol Reference Range: Low Risk >=60 High Risk <40LDL Cholesterol Reference Range: Optimal <100 Near Optimal 100-129 Borderline 130-159 High 160-189 Very High >=190 TSH/FREE T4 IF [id number] 23:42:00* Test Item Value Reference Range Interpretation Comments THYROID STIMULATING HORMONE (BEAKER) (test code = 772) 0.38 uIU/mL 0.35-4.94 TROPONIN [id number] 23:27:00* Test Item Value Reference Range Interpretation Comments TROPONIN I (BEAKER) (test code = 397) 0.01 ng/mL 0.00-0.03 Troponin I (TnI) levels must be interpreted in the context of the presenting sym ptoms and the clinical findings. Elevated TnI levels indicate myocardial damage, but are not specific for ischemic heart disease. Elevated TnI levels are seen i n patients with other cardiac conditions (including myocarditis and congestive h eart failure), and slight TnI elevations occur in patients with other conditions , including sepsis, renal failure, acidosis, acute neurological disease, and per sistent tachyarrhythmia.CBC W/PLT COUNT & AUTO [id number] 23:09:00* Test Item Value Reference Range Interpretation Comments WHITE BLOOD CELL COUNT (BEAKER) (test code = 775) 6.6 K/ L 3.5- 10.5 RED BLOOD CELL COUNT (BEAKER) (test code = 761) 5.02 M/ L 3.93-5 .22 HEMOGLOBIN (BEAKER) (test code = 410) 14.6 GM/DL 11.2-15.7 HEMATOCRIT (BEAKER) (test code = 411) 44.5 % 34.1-44.9 MEAN CORPUSCULAR VOLUME (BEAKER) (test code = 753) 88.6 fL 79. 4-94.8 MEAN CORPUSCULAR HEMOGLOBIN (BEAKER) (test code = 751) 29.1 pg 25.6-32.2 MEAN CORPUSCULAR HEMOGLOBIN CONC (BEAKER) (test code = 752) 32.8 GM/DL 32.2-35.5 RED CELL DISTRIBUTION WIDTH (BEAKER) (test code = 412) 13.3 % 11.7-14.4 PLATELET COUNT (BEAKER) (test code = 756) 452 K/CU MM 150-450 H MEAN PLATELET VOLUME (BEAKER) (test code = 754) 9.5 fL 9.4-12 .3 NUCLEATED RED BLOOD CELLS (BEAKER) (test code = 413) 0 /100 WBC 0 -0 NEUTROPHILS RELATIVE PERCENT (BEAKER) (test code = 429) 84 % LYMPHOCYTES RELATIVE PERCENT (BEAKER) (test code = 430) 14 % MONOCYTES RELATIVE PERCENT (BEAKER) (test code = 431) 1 % EOSINOPHILS RELATIVE PERCENT (BEAKER) (test code = 432) 0 % BASOPHILS RELATIVE PERCENT (BEAKER) (test code = 437) 0 % NEUTROPHILS ABSOLUTE COUNT (BEAKER) (test code = 670) 5.52 K/ L 1.56-6.13 LYMPHOCYTES ABSOLUTE COUNT (BEAKER) (test code = 414) 0.93 K/ L 1.18-3.74 L MONOCYTES ABSOLUTE COUNT (BEAKER) (test code = 415) 0.06 K/ L 0. 24-0.36 L EOSINOPHILS ABSOLUTE COUNT (BEAKER) (test code = 416) 0.00 K/ L 0.04-0.36 L BASOPHILS ABSOLUTE COUNT (BEAKER) (test code = 417) 0.01 K/ L 0. 01-0.08 IMMATURE GRANULOCYTES-RELATIVE PERCENT (BEAKER) (test code = 2801) 1 % 0-1
--- NOTE | 2020-03-09 07:43 | Emergency Department Note ---
History of Present Illnes History of Present Illness Chief Complaint: Extremity Trauma/Pain History of Present Illness This is a 64 year old female, tripped and fell last night, landed on extended hand, left wrist hurts. Historian: Patient, Family Member Arrival Mode: Car Onset (how long ago): hour(s) Radiation: Reports proximal Severity: moderate Onset quality: sudden Duration (how long): hour(s) Progression: unchanged Relieving factors: immobilization Exacerbating factors: movement Associated symptoms: Reports denies other symptoms Treatments prior to arrival: none Past Medical/Family History Physician Review I have reviewed the patient's past medical and family history. Any updates have been documented here. 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 , manage property) Other Any Pre-Existing Lines (PICC,: No Review of Systems Review of Systems Constitutional: Reports no symptoms EENTM: Reports no symptoms Cardiovascular: Reports no symptoms Respiratory: Reports no symptoms Gastrointestinal: Reports no symptoms Genitourinary: Reports no symptoms Musculoskeletal: Reports joint pain (left wrist), Reports joint swelling Integumentary: Reports no symptoms Neurological: Reports no symptoms Psychological: Reports no symptoms Endocrine: Reports no symptoms Hematological/Lymphatic: Reports no symptoms Physical Exam Related Data Allergies: Coded Allergies: No Known Allergies (Unverified , 03/09/20) Triage Vital Signs Vital Signs Date Time Temp Pulse Resp B/P (MAP) Pulse Ox O2 Delivery O2 Flow Rate FiO2 03/09/20 07:15 97.4 77 16 139/77 99 Room Air Vital signs reviewed: Yes Physical Exam CONSTITUTIONAL Constitutional: Present well-developed, Present well-nourished HENT HENT: Present normocephalic, Present atraumatic, Present oropharynx clear/moist, Present nose normal HENT L/R: Present left ext ear normal, Present right ext ear normal EYES Eyes: Reports PERRL, Reports conjunctivae normal NECK Neck: Present ROM normal PULMONARY Pulmonary: Present effort normal, Present breath sounds normal CARDIOVASCULAR Cardiovascular: Present regular rhythm, Present heart sounds normal, Present capillary refill normal, Present normal rate GASTROINTESTINAL Abdominal: Present soft, Present nontender, Present bowel sounds normal GENITOURINARY Genitourinary: Present exam deferred SKIN Skin: Present warm, Present dry MUSCULOSKELETAL Musculoskeletal: Present tenderness, Present swelling (left wrist, on ulnar side) NEUROLOGICAL Neurological: Present alert, Present oriented x 3, Present no gross motor or sensory deficits PSYCHOLOGICAL Psychological: Present mood/affect normal, Present judgement normal Results Imaging Imaging results reviewed: Yes Impressions fracture styloid Procedures Orthopedic Splinting/Casting Injury: Injury #1 Side: left Upper exremity injury location: wrist Upper extremity immobilizer: volar splint Additional comments neurovascular intact, sling provided, f/u ortho for a cast Assessment & Plan Medical Decision Making MDM sprain vs fracture Assessment & Plan Final Impression: (1) Fracture of left wrist (2) Acute pain due to trauma (3) Sprain of left wrist Depart Disposition: HOME, SELF-CARE Last Vital Signs Date Time Temp Pulse Resp B/P (MAP) Pulse Ox O2 Delivery O2 Flow Rate FiO2 03/09/20 07:15 97.4 77 16 139/77 99 Room Air Physician Attestation Provider Attestation f/u with JUICE Alvarez MD Mar 09, 2020 07:43
--- NOTE | 2020-03-09 07:49 | Diagnostic Imaging Report ---
WRIST 3VW LT - [facility] - 3 views HISTORY: Pain COMPARISON: None available. FINDINGS: Bones: Diffuse demineralization. Minimally displaced fracture of ulnar styloid process. Osseous alignment is within normal limits. Joints: No malalignment. Soft tissues: The soft tissues appear unremarkable. IMPRESSION: Minimally displaced fracture of ulnar styloid process. Signed by: Dr. Shaheen Murdock MD on 03/09/2020 7:46 AM
--- NOTE | 2020-03-09 08:08 | NUR ---
sling placed per md order and paperwork signed. disc given for follow up
== END 2020-03-09 08:09 | disposition home or self-care (01) ==
LOC: FSED 07:31
DX: S52.612A Displaced fracture of left ulna styloid process, initial encounter for closed fracture (principal); W01.0XXA Fall on same level from slipping, tripping and stumbling without subsequent striking against object, initial encounter; Y93.01 Activity, walking, marching and hiking; Y92.008 Other place in unspecified non-institutional (private) residence as the place of occurrence of the external cause
CPT/HCPCS: 99283